=== PATIENT | female | born 1975 | race Caucasian/White ===

== ENCOUNTER 2018-05-19 23:08 | Inpatient (IN) | payer OTHER ==
[2018-05-19] MEDS ORDERED: ONDANSETRON 4 MG/2 ML VIAL ONE (23:51)
[2018-05-19] MEDS ORDERED: NA CHLORIDE 0.9% 1,000 ML ONE (23:52)
[2018-05-19 23:56] LABS: Absolute Lymphocytes (CBC) 1.5 K/uL (0.7-4.9); Absolute Monocytes 1.1 K/uL (0.1-1.3); Absolute Neutrophil 11.5 K/uL (1.8-8.0); Basophils % 0.7 % (0-1.3); Eosinophils % 1.2 % (0-4.4); Hematocrit 39.6 % (36.0-45.0); Lymphocytes % 10.4 % (15.3-44.8); MCH 28.6 pg (27.0-35.0); MCV 85.9 fL (80-100); MPV 8.3 fL (7.6-11.3); Monocytes % 7.9 % (3.3-12.3)
[2018-05-20 00:22] LABS: ALT/SGPT 13 U/L (12-78); AST/SGOT 9 U/L (15-37); Albumin 3.6 g/dL (3.4-5.0); Alkaline Phosphatase 65 U/L (45-117); Amylase Level 43 U/L (25-115); BUN Blood Urea Nitrogen 12 mg/dL (7-18); Bicarbonate 26 mmol/L (21-32); Bilirubin Direct < 0.1 mg/dL (0-0.2); Bilirubin Total 0.4 mg/dL (0.2-1.0); Glucose Level 97 mg/dL (74-106); Lipase 256 U/L (73-393); Potassium 3.6 mmol/L (3.5-5.1); Protein, Total 7.3 g/dL (6.4-8.2); Sodium Level 140 mmol/L (136-145)
[2018-05-20 00:48] LABS: Urine Blood TRACE (NEG); Urine Glucose NEGATIVE (NEG); Urine Protein NEGATIVE (NEG); Urine pH 7.5 (5.0-7.0)
[2018-05-20 00:48] LABS: Urine Amorphous Sediment 3+ /HPF (NONE SEEN); Urine Bacteria <20 /HPF (<20); Urine Culture Reflex Order NOT NEEDED; Urine RBC <5 /HPF (NONE SEEN)
--- NOTE | 2018-05-20 04:29 | EDPHYS ---
Physician Documentation [facility] Name: Judith Arango Age: 42 yrs Sex: Female : 1975 Arrival Date: 05/19/2018 Time: 23:10 Bed 18 Private MD: ED Physician Austyn Montalvo HPI: 05/19 23:40 This 42 yrs old Female presents to ER via Ambulatory with complaints of cp Abdominal Pain. 23:40 The patient presents with abdominal pain right lower quadrant. Onset: The cp symptoms/episode began/occurred yesterday. The symptoms do not radiate. Associated signs and symptoms: Pertinent positives: nausea, Pertinent negatives: chest pain, constipation, diarrhea, dysuria, fever, headache, vaginal discharge, vomiting. The symptoms are described as pressure. Severity of pain: in the emergency department the pain is unchanged despite home interventions. 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 - Social history:: Smoking status: Patient/guardian denies using tobacco. - Ebola Screening: : No symptoms or risks identified at this time. ROS: 23:45 Constitutional: Negative for body aches, chills, fever, poor PO intake. cp 23:45 Eyes: Negative for injury, pain, redness, and discharge. cp 23:45 ENT: Negative for sore throat, difficulty swallowing, difficulty handling secretions. 23:45 Cardiovascular: Negative for chest pain, palpitations. 23:45 Respiratory: Negative for cough, shortness of breath, wheezing. 23:45 Abdomen/GI: Positive for abdominal pain, nausea, anorexia, Negative for vomiting, diarrhea, constipation, black/tarry stool, rectal bleeding. 23:45 Back: Negative for pain at rest, pain with movement, radiated pain. 23:45 : Negative for urinary symptoms, vaginal bleeding, vaginal discharge. 23:45 Skin: Negative for cellulitis, rash. 23:45 Neuro: Negative for altered mental status, headache, weakness. 23:45 All other systems are negative. Exam: 23:52 Constitutional: The patient appears in no acute distress, alert, awake, non-toxic, well cp developed, well nourished. 23:52 Head/Face: Normocephalic, atraumatic. cp 23:52 Eyes: Periorbital structures: appear normal, Conjunctiva: normal, no exudate, no injection, Sclera: no appreciated abnormality, Lids and lashes: appear normal, bilaterally. 23:52 ENT: External ear(s): are unremarkable, Nose: is normal, Mouth: Lips: moist, Oral mucosa: moist, Posterior pharynx: is normal, airway is patent, no erythema, no exudate. 23:52 Neck: ROM/movement: is normal, is supple, without pain, no range of motions limitations, no nuchal rigidity. 23:52 Chest/axilla: Inspection: normal, Palpation: is normal, no crepitus, no tenderness. 23:52 Cardiovascular: Rate: normal, Rhythm: regular. 23:52 Respiratory: the patient does not display signs of respiratory distress, Respirations: normal, no use of accessory muscles, no retractions, no splinting, no tachypnea, labored breathing, is not present, Breath sounds: are clear throughout, no decreased breath sounds, no stridor, no wheezing. 23:52 Abdomen/GI: Inspection: abdomen appears normal, Bowel sounds: active, all quadrants, Palpation: soft, in all quadrants, moderate abdominal tenderness, in the right lower quadrant, rebound tenderness, is not appreciated, voluntary guarding, is not appreciated, involuntary guarding, is not appreciated. 23:52 Back: pain, is absent, ROM is normal. 23:52 Skin: cellulitis, is not appreciated, no rash present. 23:52 Neuro: Orientation: to person, place \T\ time. Mentation: lucid, able to follow commands, Cerebellar function: is grossly normal, Motor: moves all fours, strength is normal, Sensation: no obvious gross deficits. Vital Signs: 23:18 BP 124 / 82; Pulse 89; Resp 16; Temp 98.9; Pulse Ox 99% on R/A; Weight 81.65 kg; Height aa1 5 ft. 6 in. (167.64 cm); Pain 0/10; 05/20 00:33 BP 116 / 61; Pulse 69; Resp 16 S; Pulse Ox 100% on R/A; jd3 02:00 BP 110 / 78; Pulse 64; Resp 18; Temp 98(O); Pulse Ox 97% on R/A; ea 04:27 Temp 100.2(O); ea 04:40 BP 104 / 73; Pulse 75; Resp 18; Pulse Ox 97% on R/A; ea 05:00 BP 118 / 70; Pulse 68; Resp 17; Temp 99.8(O); Pulse Ox 99% on R/A; Pain 2/10; ea 06:00 BP 114 / 63; Pulse 73; Resp 18; Pulse Ox 97% on R/A; ea 05/19 23:18 Body Mass Index 29.05 (81.65 kg, 167.64 cm) aa1 MDM: 05/19 23:23 Patient medically screened. 05/19 23:34 Order name: Amylase, Serum; Complete Time: 01:53 [facility] 05/19 23:34 Order name: Basic Metabolic Panel; Complete Time: 01:53 [facility] 05/20 01:53 Interpretation: Normal except: GFR 60. 05/19 23:34 Order name: CBC with Diff; Complete Time: 00:16 [facility] 05/20 00:17 Interpretation: Normal except: WBC 14.4; MEJIA% 79.8; LYM% 10.4; NEUT A 11.5. 05/19 23:34 Order name: Creatinine for Radiology; Complete Time: 01:53 [facility] 05/19 23:34 Order name: Hepatic Function; Complete Time: 01:53 [facility] 05/19 23:34 Order name: Lipase; Complete Time: 01:53 [facility] 05/19 23:34 Order name: Urine Microscopic Only; Complete Time: 01:53 [facility] 05/20 00:16 Order name: CT Abd/Pelvis - W/Contrast 05/20 00:32 Order name: Urine Dipstick--Ancillary (enter results); Complete Time: 01:53 [facility] 05/20 01:53 Interpretation: Normal except: UBLD TRACE; UPH 7.5. 05/20 00:32 Order name: Urine --Ancillary (enter results) [facility] 05/20 04:27 Order name: Blood Culture* 05/20 04:27 Order name: Blood Culture EDDE 05/19 23:34 Order name: IV Saline Lock; Complete Time: 23:55 [facility] 05/19 23:34 Order name: Labs collected and sent; Complete Time: 23:55 [facility] 05/19 23:34 Order name: Urine Dipstick-Ancillary (obtain specimen); Complete Time: 00:32 [facility] 05/19 23:35 Order name: Urine Test (obtain specimen); Complete Time: 00:32 j Administered Medications: 23:55 Drug: Zofran 4 mg Route: IVP; Site: left antecubital; [facility] 05/20 00:32 Follow up: Response: No adverse reaction [facility] 05/19 23:56 Drug: NS 0.9% 1000 ml Route: IV; Rate: 1 bolus; Site: left antecubital; [facility] 05/20 01:23 Follow up: Response: No adverse reaction; IV Status: Completed infusion; IV Intake: jd3 1000ml 05:09 Drug: cefOXitin 1 grams Route: IVPB; Infused Over: 30 mins; Site: left antecubital; dashawn 06:28 Follow up: Response: No adverse reaction; IV Status: Completed infusion ea Disposition: 04:29 Co-signature as Attending Physician, Austyn Montalvo MD pt developed fever is moderately gs tender will admi. Disposition: 05/20/18 04:28 Hospitalization ordered by Skyla Ribeiro for Inpatient Admission. Preliminary diagnosis is Diverticulitis of large intestine without perforation or abscess without bleeding. - Bed requested for Telemetry/MedSurg (Inpatient). - Status is Inpatient Admission. ea - Condition is Stable. - Problem is new. - Symptoms have improved. UTI on Admission? No Signatures: Dispatcher [employer] EDDE Taylor Infante RN RN kl Kern, Alissa, RN RN aa1 Jarad Lanza PA PA cp Antunez, Elena, RN RN ea Starr, Gregory, MD MD gs Davies, Jonathon, RN RN jd3 Corrections: (The following items were deleted from the chart) 05:52 04:28 Hospitalization Ordered by Skyla Ribeiro MD for Inpatient Admission. Preliminary diagnosis is Diverticulitis of large intestine without perforation or abscess without bleeding. Bed requested for Telemetry/MedSurg (Inpatient). Status is Inpatient Admission. Condition is Stable. Problem is new. Symptoms have improved. UTI on Admission? No. gs 06:01 05:52 05/20/2018 04:28 Hospitalization Ordered by Skyla Ribeiro MD for Inpatient kl Admission. Preliminary diagnosis is Diverticulitis of large intestine without perforation or abscess without bleeding. Bed requested for Telemetry/MedSurg (Inpatient). Status is Inpatient Admission. Condition is Stable. Problem is new. Symptoms have improved. UTI on Admission? No. kl 06:28 06:01 05/20/2018 04:28 Hospitalization Ordered by Skyla Ribeiro MD for Inpatient ea Admission. Preliminary diagnosis is Diverticulitis of large intestine without perforation or abscess without bleeding. Bed requested for Telemetry/MedSurg (Inpatient). Status is Inpatient Admission. Condition is Stable. Problem is new. Symptoms have improved. UTI on Admission? No. kl
--- NOTE | 2018-05-20 04:29 | ER ---
Nurse's Notes [facility] Name: Judith Arango Age: 42 yrs Sex: Female : 1975 Arrival Date: 05/19/2018 Time: 23:10 Bed 18 Private MD: Diagnosis: Diverticulitis of large intestine without perforation or abscess without bleeding Presentation: 05/19 23:17 Presenting complaint: Patient states: RLQ pain and suprapubic pressure since yesterday. aa1 States, "I don't know if I have a urinary tract infection or if it's an ovarian cyst or what.". Transition of care: patient was not received from another setting of care. Onset of symptoms was May 18, 2018. Risk Assessment: Do you want to hurt yourself or someone else? Patient reports no desire to harm self or others. Initial Sepsis Screen: Does the patient meet any 2 criteria? No. Patient's initial sepsis screen is negative. Does the patient have a suspected source of infection? Yes: Acute abdominal pain. Care prior to arrival: None. 23:17 Method Of Arrival: Ambulatory aa1 23:17 Acuity: DEE 3 aa1 Triage Assessment: 23:18 General: Appears in no apparent distress. comfortable, Behavior is calm, cooperative, aa1 appropriate for age. 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 - Social history:: Smoking status: Patient/guardian denies using tobacco. - Ebola Screening: : No symptoms or risks identified at this time. Screenin:27 Abuse screen: Denies threats or abuse. Nutritional screening: No deficits noted. jd3 Tuberculosis screening: No symptoms or risk factors identified. Fall Risk Ambulatory Aid- None/Bed Rest/Nurse Assist (0 pts). Gait- Normal/Bed Rest/Wheelchair (0 pts) Mental Status- Oriented to own ability (0 pts). Total Oscar Fall Scale indicates No Risk (0-24 pts). Assessment: 23:24 General: Appears uncomfortable, Behavior is calm, cooperative, appropriate for age. jd3 Pain: Complains of pain in right lower quadrant and left lower quadrant Pain currently is 4 out of 10 on a pain scale. Quality of pain is described as aching, Pain began 2-3 days ago. Is continuous. Neuro: Level of Consciousness is awake, alert, obeys commands, Oriented to person, place, time, situation. Cardiovascular: Heart tones S1 S2 present Capillary refill < 3 seconds Patient's skin is warm and dry. Respiratory: Airway is patent Respiratory effort is even, unlabored, Respiratory pattern is regular, symmetrical, Breath sounds are clear bilaterally. GI: Abdomen is round Bowel sounds present X 4 quads. Abd is soft and non tender X 4 quads. Reports lower abdominal pain. : Reports discomfort with urination. EENT: No signs and/or symptoms were reported regarding the EENT system. Derm: Skin is intact, Skin is dry, Skin is normal, Skin temperature is warm. Musculoskeletal: Circulation, motion, and sensation intact. Range of motion: intact in all extremities. 05/20 00:32 Reassessment: Patient appears in no apparent distress at this time. Patient and/or jd3 family updated on plan of care and expected duration. Pain level reassessed. Patient is alert, oriented x 3, equal unlabored respirations, skin warm/dry/pink. reports nausea is decreased. 00:55 Reassessment: CT notified of finishing PO contrast. jd3 02:00 General: Appears in no apparent distress. Behavior is calm, cooperative, appropriate ea for age. Pain: Denies pain. Cardiovascular: Patient's skin is warm and dry. Respiratory: Airway is patent Respiratory effort is even, unlabored, Respiratory pattern is regular, symmetrical. GI: Abdomen is round Bowel sounds present X 4 quads. Abd is soft and non tender X 4 quads. Derm: Skin is pink, warm \\T\\ dry. Musculoskeletal: No signs and/or symptoms reported regarding the musculoskeletal system. 03:03 Reassessment: Patient and/or family updated on plan of care and expected duration. Pain ea level reassessed. Patient is alert, oriented x 3, equal unlabored respirations, skin warm/dry/pink. Pt taken to CT. 04:18 Reassessment: Patient and/or family updated on plan of care and expected duration. Pain ea level reassessed. Pt resting with eyes closed, respirations even and unlabored, chest expansions even and symmetrical. No s/s of pain or discomfort noted at this time. 05:35 Reassessment: Patient and/or family updated on plan of care and expected duration. Pain ea level reassessed. Patient is alert, oriented x 3, equal unlabored respirations, skin warm/dry/pink. v/o obtained from Dr. Bustillo for Tylenol 500 mg 1 tab PO for fever. Medication administered, pt tolerated well. Pt denies pain at this time. 06:23 Reassessment: Patient and/or family updated on plan of care and expected duration. Pain ea level reassessed. Patient is alert, oriented x 3, equal unlabored respirations, skin warm/dry/pink. Report given to receiving nurse on second floor. Vital Signs: 05/19 23:18 BP 124 / 82; Pulse 89; Resp 16; Temp 98.9; Pulse Ox 99% on R/A; Weight 81.65 kg; Height aa1 5 ft. 6 in. (167.64 cm); Pain 0/10; 05/20 00:33 BP 116 / 61; Pulse 69; Resp 16 S; Pulse Ox 100% on R/A; jd3 02:00 BP 110 / 78; Pulse 64; Resp 18; Temp 98(O); Pulse Ox 97% on R/A; ea 04:27 Temp 100.2(O); ea 04:40 BP 104 / 73; Pulse 75; Resp 18; Pulse Ox 97% on R/A; ea 05:00 BP 118 / 70; Pulse 68; Resp 17; Temp 99.8(O); Pulse Ox 99% on R/A; Pain 2/10; ea 06:00 BP 114 / 63; Pulse 73; Resp 18; Pulse Ox 97% on R/A; ea 05/19 23:18 Body Mass Index 29.05 (81.65 kg, 167.64 cm) aa1 ED Course: 05/19 23:10 Patient arrived in ED. am2 23:12 Tal Mccall, KORY is Primary Nurse. jd3 23:18 Triage completed. aa1 23:18 Arm band placed on right wrist. Patient placed in an exam room, on a stretcher. aa1 23:22 Jarad Lanza PA is PHCP. cp 23:22 Austyn Montalvo MD is Attending Physician. cp 23:27 Patient has correct armband on for positive identification. Placed in gown. Bed in low jd3 position. Call light in reach. Side rails up X 1. Adult w/ patient. 23:45 Inserted saline lock: 20 gauge in left antecubital area, using aseptic technique. Blood jd3 collected. 05/20 00:51 Oral contrast given. 03:09 CT Abd/Pelvis - W/Contrast In Process Unspecified. EDMS 03:09 CT completed. Patient tolerated procedure well. Patient moved to CT via stretcher. Patient moved back from CT. 04:28 Skyla Ribeiro MD is Hospitalizing Provider. 06:23 No provider procedures requiring assistance completed. Patient admitted, IV remains in ea place. Administered Medications: 05/19 23:55 Drug: Zofran 4 mg Route: IVP; Site: left antecubital; jd3 05/20 00:32 Follow up: Response: No adverse reaction jd3 05/19 23:56 Drug: NS 0.9% 1000 ml Route: IV; Rate: 1 bolus; Site: left antecubital; jd3 05/20 01:23 Follow up: Response: No adverse reaction; IV Status: Completed infusion; IV Intake: jd3 1000ml 05:09 Drug: cefOXitin 1 grams Route: IVPB; Infused Over: 30 mins; Site: left antecubital; ea 06:28 Follow up: Response: No adverse reaction; IV Status: Completed infusion ea Intake: 01:23 IV: 1000ml; Total: 1000ml. jd3 Outcome: 04:28 Decision to Hospitalize by Provider. 06:23 Admitted to Med/surg accompanied by nurse, via wheelchair, room 231, with chart, Report ea called to Receiving nurse. 06:23 Condition: improved 06:28 Patient left the ED. ea Signatures: Dispatcher [employer] EDMS Elisabeth Bazzi RN RN aa1 French Weiner Jarad Lanza PA PA cp Moreno, Amanda amRama Burkett RN RN ea Starr, Gregory, MD MD gs Davies, Jonathon, RN RN jd3 Corrections: (The following items were deleted from the chart) 06:26 05:00 BP 104 / 73; Pulse 73bpm; Resp 18bpm; Pulse Ox 97% RA; ea ea 06:27 05:00 BP 114 / 63; Pulse 73bpm; Resp 18bpm; Pulse Ox 97% RA; dashawn tamez 06:23 Admitted to Med/surg accompanied by nurse, via wheelchair, room 212, with chart, ea Report called to Receiving nurse. dashawn
[2018-05-20] MEDS ORDERED: CEFOXITIN SODIUM 2 GM/VIAL ONE (04:34)
[2018-05-20] MEDS ORDERED: NA CHLORIDE 0.9% 50 ML IV ONE (04:34)
[2018-05-20] MEDS ORDERED: ACETAMINOPHEN 500 MG TAB PO ONE (05:32)
--- NOTE | 2018-05-20 05:43 | P.HP ---
Certification for Inpatient Patient admitted to: Inpatient With expected LOS: >2 Midnights Practitioner: I am a practitioner with admitting privileges, knowledge of patient current condition, hospital course, and medical plan of care. Services: Services provided to patient in accordance with Admission requirements found in Title 42 Section 412.3 of the Code of Federal Regulations Patient History Date of Service: 05/20/18 Reason for admission: acute diverticulitis History of Present Illness: Ms Arango is a 42 years old woman, with quite benign past medical history, who start yesterday morning with on and off abdominal pain. It was mostly localized on RLQ, 8/10 of intensity, associated with nausea but not vomiting. She has never had a pain like that before. She denied vomiting, or diarrhea. The patient was also complaining of fever. At arrival temperature was normal, however, during her stay in ER she developed fever 100.2F. Lab work remarkable for leukocytosis 14.4K CT abd/pelvis consistent with acute sigmoid diverticulitis. It was also found a uterine fibroid of 3.5 cm. Allergies No Known Allergies Allergy (Unverified 05/20/18 04:58) - Past Medical/Surgical History Past Medical History: Reviewed- Non-Contributory Past Surgical History: Reviewed- Non-Contributory - Family History Family History: Reviewed- Non-Contributory - Social History Smoking Status: Never smoker CD- Drugs: No Place of Residence: Home Review of Systems 10-point ROS is otherwise unremarkable Physical Examination - Physical Exam General: Alert, In no apparent distress HEENT: Atraumatic, PERRLA, Mucous membr. moist/pink, EOMI, Sclerae nonicteric Neck: Supple, 2+ carotid pulse no bruit, No LAD, Without JVD or thyroid abnormality Respiratory: Clear to auscultation bilaterally, Normal air movement Cardiovascular: Regular rate/rhythm, Normal S1 S2 Gastrointestinal: Normal bowel sounds, Tenderness (tender to palption, mostly on RLQ.) Musculoskeletal: No tenderness Integumentary: No rashes Neurological: Normal gait, Normal speech, Normal strength at 5/5 x4 extr, Normal tone, Normal affect Lymphatics: No axilla or inguinal lymphadenopathy - Studies Laboratory Data (last 24 hrs) 05/19/18 23:45: Creatinine 1.00 05/19/18 23:45: WBC 14.4 H, Hgb 13.1, Hct 39.6, Plt Count 337 06/27/18 23:45: Sodium 140, Potassium 3.6, BUN 12, Creatinine 1.00, Glucose 97, Total Bilirubin 0.4, AST 9 L, ALT 13, Alkaline Phosphatase 65, Amylase 43, Lipase 256 Assessment and Plan - Problems (Diagnosis) (1) Acute diverticulitis Onset Date: 05/20/18 Current Visit: Yes Status: Acute - Plan Ms Arango will be admitted to the hospital due to acute diverticulitis. Will start empiric treatment with Cipro and Flagyl, IV fluids, symptomatic medication for fever and pain. Will try clear liquids when the patient improves her nausea. - Advance Directives Does patient have a Living Will: No Does patient have a Durable POA for Healthcare: No - Code Status/Comfort Care Code Status Assessed: Yes Code Status: Full Code
[2018-05-20] MEDS ORDERED: ONDANSETRON 4 MG/2 ML VIAL IV PRN (06:31)
[2018-05-20] MEDS ORDERED: KETOROLAC 30 MG/ML INJ IV PRN (06:31)
[2018-05-20] MEDS ORDERED: ACETAMINOPHEN 500 MG TAB PO PRN (06:31)
--- NOTE | 2018-05-20 07:23 | RAD REPORT ---
EXAM DESCRIPTION: CT - Abdomen Pelvis W Contrast - 05/20/2018 6:45 am CLINICAL HISTORY: Persistent right lower quadrant pain, abdominal and pelvic pain. A preliminary written report was provided at the time of the study, and the report was reviewed prio r to final dictation. COMPARISON: None. TECHNIQUE: Biphasic, helical CT imaging of the abdomen and pelvis was performed following 100 ml non -ionic IV contrast. Oral contrast was given. All CT scans are performed using dose optimization technique as appropriate and may include automated exposure control or mA/KV adjustment according to patient size. FINDINGS: No suspicious findings in the lung bases. The liver, spleen, and pancreas show no suspicious findings. Gallbladder and biliary tree are also wi thout suspicious finding. Symmetric renal function is seen with no hydronephrosis or suspicious renal mass. No urinary bladder abnormality. Uterus contains heterogeneous 3.5 centimeter mass in the fundus that is likely an incide ntal fibroid. No ovarian abnormality identifiable. No gastric dilatation or gastric wall thickening. No acute small bowel finding. Appendix is normal. N o acute colon finding seen from cecum through descending colon. Approximately 8 centimeter long segme nt of sigmoid colon shows wall thickening with edema, fluid and stranding in the adjacent fat. Minima l diverticulosis is present in this region. Acute diverticulitis or nonspecific colitis would be most likely. Colon malignant etiology is not excluded but much less likely. No mass, lymphadenopathy or o ther finding to elevate likelihood of malignancy over infectious/inflammatory process. No abscess, pe rforation or other surgically emergent complication. No free air or pneumatosis. Trace free fluid is seen. No hernia, mass or bulky lymphadenopathy. No adrenal abnormality. No suspicious bony findings. IMPRESSION: Approximately 8 centimeter long segment of sigmoid colon showing circumferential wall th ickening with adjacent fluid, stranding and edema. No abscess, free air or other emergent complicatio n. Acute diverticulitis is most likely. Malignant etiology is not excluded but much less likely. Colon c an be evaluated with colonoscopy after medical management of the acute illness. Additional nonacute findings detailed in the body of the report.
[2018-05-20] MEDS ORDERED: SODIUM CHLORIDE 0.9% 10ML INJ IV PRN (07:47)
[2018-05-20] MEDS ORDERED: MORPHINE 2 MG/ML SYR IV PRN (07:48)
[2018-05-20] MEDS ORDERED: TRAMADOL HCL 50 MG TAB PO PRN (07:48)
[2018-05-20] MEDS ORDERED: HYDROCODONE/APAP 7.5/325 MG TAB PO PRN (07:48)
[2018-05-20] MEDS: NA CHLORIDE 0.9% 1,000 ML IV SCH ×3 (08:43→21:53)
[2018-05-20] MEDS: CIPROFLOXACIN 400mg IV 400 MG/200 ML BAG IV SCH ×2 (08:44→21:53)
[2018-05-20] MEDS: PANTOPRAZOLE 40 MG INJ IVP SCH (08:44)
[2018-05-20] MEDS: METRONIDAZOLE 500mg IVPB 500 MG/100 ML BAG IV SCH ×2 (08:44→17:13)
--- NOTE | 2018-05-20 08:48 | P.PN ---
Subjective Date of Service: 05/20/18 Primary Care Provider: [facility] Chief Complaint: acute diverticulitis Subjective: Improving Physical Examination - Vital Signs Temperature: 97.6 F Blood Pressure: 102/58 Pulse: 68 Respirations: 18 Pulse Ox (%): 96 - Physical Exam General: Alert, In no apparent distress, Oriented x3, Cooperative HEENT: Atraumatic, Mucous membr. moist/pink Neck: Supple Respiratory: Clear to auscultation bilaterally, Normal air movement Cardiovascular: Normal pulses, Regular rate/rhythm Gastrointestinal: Normal bowel sounds, Soft and benign, Non-distended, No masses , No rebound, No guarding, Tenderness (Pain to the left lower quadrant) Musculoskeletal: No erythema, No tenderness, No warmth Integumentary: No tenderness/swelling, No erythema, No warmth, No cyanosis Neurological: Normal speech, Normal strength at 5/5 x4 extr, Normal tone, Normal affect Lymphatics: No axilla or inguinal lymphadenopathy - Studies Laboratory Data (last 24 hrs) 05/19/18 23:45: Creatinine 1.00 05/19/18 23:45: WBC 14.4 H, Hgb 13.1, Hct 39.6, Plt Count 337 05/19/18 23:45: Sodium 140, Potassium 3.6, BUN 12, Creatinine 1.00, Glucose 97, Total Bilirubin 0.4, AST 9 L, ALT 13, Alkaline Phosphatase 65, Amylase 43, Lipase 256 Medications List Reviewed: Yes Assessment & Plan - Problems (Diagnosis) (1) GERD (gastroesophageal reflux disease) Current Visit: Yes Status: Suspected Plan: Will start PPI. Qualifiers: Esophagitis presence: esophagitis presence not specified Qualified Code(s) : K21.9 - Gastro-esophageal reflux disease without esophagitis (2) Acute diverticulitis Onset Date: 05/20/18 Current Visit: Yes Status: Acute Plan: Patient with sigmoid diverticulitis. Will start with clear liquid diet. Patient on IV Flagyl and Cipro. Will continue monitor closely. Will advance diet as tolerated. Encourage ambulation. Anticipate discharge in the next 1-2 days. Patient will need colonoscopy in 4-6 weeks. Education on diverticulitis will be provided. Discharge Plan: Home Plan to discharge in: 24 Hours Time Spent Managing Pts Care (In Minutes): 55
[2018-05-21] MEDS: METRONIDAZOLE 500mg IVPB 500 MG/100 ML BAG IV SCH ×2 (00:33→09:41)
[2018-05-21 05:48] LABS: Absolute Lymphocytes (CBC) 1.7 K/uL (0.7-4.9); Absolute Monocytes 0.9 K/uL (0.1-1.3); Basophils % 0.9 % (0-1.3); Eosinophils % 2.4 % (0-4.4); Hematocrit 35.7 % (36.0-45.0); Lymphocytes % 15.9 % (15.3-44.8); MCH 28.9 pg (27.0-35.0); MCV 86.1 fL (80-100); MPV 8.5 fL (7.6-11.3); Monocytes % 8.5 % (3.3-12.3); RBC Red Blood Cell Count 4.14 M/uL (3.86-4.86)
[2018-05-21 06:00] LABS: Magnesium 2.1 mg/dL (1.8-2.4); Potassium 3.6 mmol/L (3.5-5.1)
[2018-05-21] MEDS ORDERED: POTASSIUM 25 MEQ EFFERV TAB PO ONE (06:18)
[2018-05-21] MEDS: PANTOPRAZOLE 40 MG INJ IVP SCH (09:41)
[2018-05-21] MEDS: CIPROFLOXACIN 400mg IV 400 MG/200 ML BAG IV SCH (09:41)
--- NOTE | 2018-05-21 10:21 | P.DS ---
Admission Date: 05/20/18 Discharge Date: 05/21/18 Primary Care Provider: [facility] Disposition: ROUTINE DISCHARGE Discharge Condition: GOOD Reason for Admission: acute diverticulitis Procedures: CT scan: COMPARISON: None. TECHNIQUE: Biphasic, helical CT imaging of the abdomen and pelvis was performed following 100 ml non-ionic IV contrast. Oral contrast was given. All CT scans are performed using dose optimization technique as appropriate and may include automated exposure control or mA/KV adjustment according to patient size. FINDINGS: No suspicious findings in the lung bases. The liver, spleen, and pancreas show no suspicious findings. Gallbladder and biliary tree are also without suspicious finding. Symmetric renal function is seen with no hydronephrosis or suspicious renal mass. No urinary bladder abnormality. Uterus contains heterogeneous 3.5 centimeter mass in the fundus that is likely an incidental fibroid. No ovarian abnormality identifiable. No gastric dilatation or gastric wall thickening. No acute small bowel finding. Appendix is normal. No acute colon finding seen from cecum through descending colon. Approximately 8 centimeter long segment of sigmoid colon shows wall thickening with edema, fluid and stranding in the adjacent fat. Minimal diverticulosis is present in this region. Acute diverticulitis or nonspecific colitis would be most likely. Colon malignant etiology is not excluded but much less likely. No mass, lymphadenopathy or other finding to elevate likelihood of malignancy over infectious/inflammatory process. No abscess, perforation or other surgically emergent complication. No free air or pneumatosis. Trace free fluid is seen. No hernia, mass or bulky lymphadenopathy. No adrenal abnormality. No suspicious bony findings. IMPRESSION: Approximately 8 centimeter long segment of sigmoid colon showing circumferential wall thickening with adjacent fluid, stranding and edema. No abscess, free air or other emergent complication. Acute diverticulitis is most likely. Malignant etiology is not excluded but much less likely. Colon can be evaluated with colonoscopy after medical management of the acute illness. - Problems (1) GERD (gastroesophageal reflux disease) Current Visit: Yes Status: Suspected Qualifiers: Esophagitis presence: esophagitis presence not specified Qualified Code(s) : K21.9 - Gastro-esophageal reflux disease without esophagitis (2) Acute diverticulitis Onset Date: 05/20/18 Current Visit: Yes Status: Acute (3) Fibroid Current Visit: Yes Status: Suspected Brief History of Present Illness: 42 year old female presented emergency room with abdominal pain, nausea and vomiting. Pain mainly to the left lower quadrant. Patient was evaluated in the ER. Patient found to have sigmoid diverticulitis. The patient was admitted for treatment. Hospital Course: During the course of her stay patient was treated for sigmoid diverticulitis. Patient responded well. At discharge she did not have any nausea, vomiting or abdominal pain. At discharge she will continue with Cipro 500 mg 1 pill twice daily and Flagyl 500 mg 1 pill 3 times a day for 10 days. Patient may continue with a soft GI diet and advance as tolerated. Recommendation to follow up with GI in 2-4 weeks to monitor her progress. Patient colonoscopy in 4-6 weeks to further address. Education on diverticulitis will be provided. Patient may take Tylenol and/or ibuprofen as needed for pain. CT scan showed possible fibroid. Patient with history of fibroids in the past. Patient is seen by gynecology. Recommendation is for the patient to follow up with gynecology to further assess. Patient may have underlying GERD. At discharge patient will continue with Protonix 40 mg 1 pill once daily. Recommendation is for the patient follow up with GI to further evaluate. Vital Signs/Physical Exam: Temp Pulse Resp BP Pulse Ox 97.5 F 65 18 126/59 L 98 05/21/18 08:00 05/21/18 08:00 05/21/18 08:00 05/21/18 08:00 05/21/18 08:00 General: Alert, In no apparent distress, Oriented x3, Cooperative HEENT: Atraumatic Neck: Supple Respiratory: Clear to auscultation bilaterally, Normal air movement Cardiovascular: Normal pulses, Regular rate/rhythm Gastrointestinal: Normal bowel sounds, Soft and benign, Non-distended, No ascites, No tenderness, No masses, No rebound, No guarding Musculoskeletal: No erythema, No tenderness, No warmth Integumentary: No tenderness/swelling, No erythema, No warmth, No cyanosis Neurological: Normal speech, Normal strength at 5/5 x4 extr, Normal tone, Normal affect Laboratory Data at Discharge: WBC 11.0 K/uL (4.3-10.9) H D 05/21/18 05:05 Hgb 12.0 g/dL (12.0-15.0) 05/21/18 05:05 Hct 35.7 % (36.0-45.0) L 05/21/18 05:05 Plt Count 300 K/uL (152-406) 05/21/18 05:05 Sodium 142 mmol/L (136-145) 05/21/18 05:05 Potassium 3.6 mmol/L (3.5-5.1) 05/21/18 05:05 BUN 5 mg/dL (7-18) L 05/21/18 05:05 Creatinine 0.80 mg/dL (0.55-1.3) 05/21/18 05:05 Glucose 96 mg/dL (74-106) 05/21/18 05:05 Magnesium 2.1 mg/dL (1.8-2.4) 05/21/18 05:05 Total Bilirubin 0.4 mg/dL (0.2-1.0) 05/19/18 23:45 AST 9 U/L (15-37) L 05/19/18 23:45 ALT 13 U/L (12-78) 05/19/18 23:45 Alkaline Phosphatase 65 U/L (45-117) 05/19/18 23:45 Amylase 43 U/L (25-115) 05/19/18 23:45 Lipase 256 U/L (73-393) 05/19/18 23:45 Home Medications: Ciprofloxacin HCl [Cipro 500 MG Tablet] 500 mg PO BID #20 tab 05/21/18 Pantoprazole [Protonix Tab] 40 mg PO DAILY #30 tab 05/21/18 metroNIDAZOLE [Flagyl] 500 mg PO Q8H #30 tablet 05/21/18 New Medications: Ciprofloxacin HCl [Cipro 500 MG Tablet] 500 mg PO BID #20 tab metroNIDAZOLE [Flagyl] 500 mg PO Q8H #30 tablet Pantoprazole [Protonix Tab] 40 mg PO DAILY #30 tab Patient Discharge Instructions: 1. Patient will need to follow up with her PCP in 1 week to follow up this hospitalization. 2. Patient presented with abdominal pain, nausea. Patient found to have sigmoid diverticulitis. Patient did well during the course of her stay. At discharge patient tolerated her diet. No significant pain or nausea was noted at discharge. At discharge she will continue with Cipro 500 mg 1 pill twice daily and Flagyl 500 mg 1 pill 3 times a day for 10 days. Patient may continue with a soft GI diet and advance as tolerated. Recommendation to follow up with GI in 2-4 weeks to monitor her progress and further address. Patient colonoscopy in 4-6 weeks to further address. Education on diverticulitis will be provided. Patient may take ibuprofen and/or Tylenol as needed for pain. 3. CT scan showed possible fibroid. Patient with history of fibroids in the past. Patient is seen by gynecology. Recommendation is for the patient to follow up with gynecology to further assess. 4. Patient may have underlying GERD. At discharge patient will continue with Protonix 40 mg 1 pill once daily. Recommendation is for the patient follow up with GI to further evaluate. Diet: GI soft, advanced as tolerated Activity: Ad chintan Time spent managing pt's care (in minutes): 55
== END 2018-05-21 12:10 | disposition home or self-care (01) | DRG 392 ==
LOC: ER 23:08 → ERHOLD 05-20 04:48 → 2ND 05-20 06:02
PROVIDERS: ADMIT Internal Medicine; ATTEND Family Medicine
DX: K57.32 Diverticulitis of large intestine without perforation or abscess without bleeding (principal); K21.9 Gastro-esophageal reflux disease without esophagitis; D25.9 Leiomyoma of uterus, unspecified
CPT/HCPCS: 36415; 74177; 80048; 80076; 81003; 81015; 81025; 82150; 83690; 83735; 84145; 85025; 87040; 96361; 96365; 96375; 99285; C9113; J0694; J0744; J2405; J7030; Q9967

== ENCOUNTER 2018-07-23 08:51 | Day surgery (SDC) | payer OTHER ==
[2018-07-23] MEDS ORDERED: Ringers Lactate 1,000 ML IV ONE (09:21)
[2018-07-23 09:37] LABS: Specific Gravity 1.025 (1.005-1.030)
[2018-07-23] MEDS ORDERED: LIDOCAINE 1% MPF 5 ML VIAL ONE (10:32)
[2018-07-23] MEDS ORDERED: PROPOFOL 200 MG/20 ML VIAL IV ONE ×2 (10:32→11:27)
--- NOTE | 2018-07-23 12:36 | ENDO RPT ---
[address], [address] COLONOSCOPY PROCEDURE REPORT EXAM DATE: 07/23/2018 PATIENT NAME: Judith Arango MR #: [id number] BIRTHDATE: 1975 ATTENDING: Isma Webb DR STATUS: outpatient DAY CARE ASSISTANT: Kelsey Coughlin RN and Lexa Simeon [facility] INDICATIONS: The patient is a 42 yr old Female here for a colonoscopy due to diverticulitis PROCEDURE PERFORMED: Colonoscopy with biopsy - cold polypectomy MEDICATIONS: Per Anesthesia. ESTIMATED BLOOD LOSS: None CONSENT: The patient understands the risks and benefits of the procedure and understands that these risks include, but are not limited to: sedation, allergic reaction, infection, perforation and/or bleeding. Alternative means of evaluation and treatment include, among others: physical exam, x-rays, and/or surgical intervention. The patient elects to proceed with this endoscopic procedure. DESCRIPTION OF PROCEDURE: During intra-op preparation period all mechanical medical equipment was checked for proper function. Hand hygiene and appropriate measures for infection prevention was taken. Procedure, possible complications, alternatives including, but not limited to possibility of bleeding, perforation, tear, infection, sepsis, need for surgery, need for blood transfusion, were explained to the patient. After the risks, benefits and alternatives of the procedure were thoroughly explained, Informed consent was verified, confirmed and timeout was successfully executed by the treatment team. The patient was placed in the left lateral position. A digital rectal exam was performed and revealed internal hemorrhoids. After appropriate level of anesthesia, the scope was passed. The [id number] ([id number]) endoscope was introduced through the anus and advanced to the cecum, which was identified by both the appendix and ileocecal valve. The quality of the prep was fair. The instrument was then slowly withdrawn as the colon was fully examined. Scope withdrawal time was 12 minutes. COLON FINDINGS: Moderate diverticulosis was noted in the sigmoid colon. No bleeding was noted from the diverticulosis. There was moderate diverticulosis noted in the sigmoid colon with associated tortuosity. Two small polypoid shaped and smooth pedunculated polyps were found in the descending colon. A polypectomy was performed with cold forceps. The resection was complete, the polyp tissue was completely retrieved and sent to histology. A polypectomy was performed with cold forceps. The resection was complete, the polyp tissue was completely retrieved and sent to histology. Retroflexed views revealed no abnormalities. The scope was then completely withdrawn from the patient and the procedure terminated. ADVERSE EVENTS: There were no complications. IMPRESSIONS: 1. Moderate diverticulosis was noted in the sigmoid colon 2. There was moderate diverticulosis noted in the sigmoid colon 3. Two small pedunculated polyps were found in the descending colon; polypectomy was performed with cold forceps; polypectomy was performed with cold forceps RECOMMENDATIONS: 1. avoid NSAIDS for 2 weeks 2. await biopsy results 3. follow-up: office 2 week(s) 4. yearly hemoccult starting in 4 years 5. hemorrhoidal hygiene 6. low fiber / diverticular diet RECALL: Return in 3 year(s) for Colonoscopy, pending biopsy results. Pending Biopsy Isma Webb DR eSigned: Isma Webb DR 07/23/2018 11:21 AM cc: CPT CODES: ICD9 CODES: PATIENT NAME: Judith Arango MR#: [id number]
== END 2018-07-23 11:57 | disposition home or self-care (01) ==
LOC: OR 08:51
PROVIDERS: ATTEND Surgery
PROC: 0DBM8ZX Excision of Descending Colon, Via Natural or Artificial Opening Endoscopic, Diagnostic (ICD-10-PCS; principal; 2018-07-23 10:45)
DX: Z09 Encounter for follow-up examination after completed treatment for conditions other than malignant neoplasm (principal); K63.5 Polyp of colon; K57.30 Diverticulosis of large intestine without perforation or abscess without bleeding; K64.8 Other hemorrhoids
CPT/HCPCS: 81025; 88305

== ENCOUNTER 2020-10-24 08:50 | Emergency (ER) | payer OTHER ==
--- OUTSIDE RECORDS SUMMARY | 2020-10-24 09:43 | XMS REPORT | Continuity of Care Document ---
:1975 Author Organization [facility] t Address [address] [place] [address] [address] [place] [address] Care Team Providers Name Role Phone Provider, Urgent Care Attending Clinician Unavailable Doctor Unassigned, Name Attending Clinician Unavailable Problems This patient has no known problems. Allergies, Adverse Reactions, Alerts This patient has no known allergies or adverse reactions. Medications This patient has no known medications. Procedures This patient has no known procedures. Encounters Start End Encounter Admission Attending Care Care Encounter Source Date/Time Date/Time Type Type Clinicians Facility Department ID 2020-10-06 2020-10-06 Urgent Provider, [facility] [id number] 15:13:11 15:35:55 Care [facility] [id number] Care [place] [id number] [place] [phone] [address] 2020-10-06 2020-10-06 Letter Doctor SHANKS [id number] 00:00:00 00:00:00 (Out) UnassNAYANA cui [id number] [place] [facility] [phone] 044 Results This patient has no known results.
--- OUTSIDE RECORDS SUMMARY | 2020-10-24 09:43 | XMS REPORT | Summary of Care ---
:1975 Author Organization [facility] Address [address] [place] [id number] Care Team Providers Name Role Phone Pcp, Patient Does Not Have A Primary Care Provider +[id number] 0-0000 Reason for Visit Reason Comments Sinus Problem Headache advil @ 1200 Diarrhea yesterday, resolved today Encounter Details Date Type Department Care Team Description 10/06/2020 Urgent Care [facility] Family Alina Landeros, SURVEILLANCE ANALYST [address] [place], [place] [id number] Viral illness (Primary Dx); [facility] Provider, [facility] Exposure to SARS-associated coronavirus [address] [place] [address] Allergies No Known Allergiesdocumented as of this encounter (statuses as of 10/06/2020) Medications Medication Sig Dispensed Refills Start Date End Date Status LO LOESTRIN FE 1 mg-10 Take 1 tablet by 0 09/20/2020 Active mcg (24)/10 mcg (2) per mouth daily. tablet methylPREDNISolone Take by mouth 21 Each 0 10/06/2020 Active (MEDROL, RIA,) 4 mg SEE-INSTRUCTIONS tabletsIndications: . 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 There is no vaccine yet. During a pandemic, it's especially important to keep up on recommended vaccines for other illnesses.This is more true if you're at higher risk for severe illness from COVID-19, the flu, or pneumonia. This includes older adults and those who have long-term (chronic) health conditions. Getting a yearlyflu vaccine is advised for everyone 6 months old and older, with rare exceptions. Health experts advise the flu vaccine to protect you and others. The flu vaccine helps protect those at high-risk for serious illness, and lowers the strain on hospitals during the COVID-19 pandemic. Canceling travel and other outings Stay informed about COVID-19 in your area. Follow local instructions about being in public. Be awareof events in your community that may be postponed or canceled, such as school and sporting events. You may be advised not to attend public gatherings. You will be advised to stay at least 6 feet from others as much as possible. This is called "social distancing." You may be advised to stay at home and isolate yourself as much as possible if COVID-19 is in your area. You may hear terms such as "self isolate, "quarantine," stay at home, and intermediate in place. The CDC advises that people should not travel to areas where there are COVID-19 outbreaks right now for any reason that is not urgent. For the most current CDC travel advisories, visit the CDC website at www.cdc.gov/coronavirus/2019- ncov/travelers.Dont go on cruises or do non-essential travel right now. When you are at home Wash your hands often. Use soap and clean, running water for at least 20 seconds. If you don't have access to soap and water, use an alcohol-based hand exam proctor often. Make sure it has at least 60% alcohol. Don't touch your eyes, nose, or mouth unless you have clean hands. Dont kiss someone who is sick. If you need to cough or sneeze, do it into a tissue. Then throw the tissue into the trash. If youdon't have tissues, cough or sneeze into the bend of your elbow. When possible, don't touch "high-touch" shared surfaces such as doorknobs and handles, cabinet handles, and light switches. Clean frequently-touched home surfaces often with disinfectant. This includes desk surfaces, printers, phones, kitchen counters, tables, fridge door handle, bathroom surfaces, and any soiled surface. Closely follow disinfectant label instructions. Go to the CDCs detailed cleaning website at www.c al.gov/coronavirus/2019-ncov/prepare/cleaning-disinfection.html. Check your home supplies. Consider keeping a 2-week supply of medicines, food, and other needed household items. Make a plan for childcare, work, and ways to stay in touch with others. Know who will help you ifyou get sick. Don't be around people who are sick. There is no evidence right now that animals spread SARS-CoV-2. But it's always a good idea to wash your hands after touching any animals. Don't touch animals that may be sick. Dont share eating or drinking utensils with sick people. If you leave home Stay at least 6 feet away from all people. This is called "social distancing." When possible, don't touch "high-touch" public surfaces such as doorknobs and handles, cabinet handles, and light switches. If you touch these surfaces, try to clean them first with a disinfecting wipe. Or touch them using a tissue or paper towel. Use an alcohol-based hand exam proctor often. Make sure it has at least 60% alcohol. Don't touch your eyes, nose, or mouth unless you have clean hands. If you need to cough or sneeze, do it into a tissue. Then throw the tissue into the trash. If youdon't have tissues, cough or sneeze into the bend of your elbow. Don't attend public gatherings if possible. If you do attend public gatherings, follow social distancing rules. Don't share food or personal items such as water bottles. The CDC advises wearing a cloth face mask in public. During a public health emergency, medical face masks may be reserved for healthcare workers. You may need to make a cloth face mask of your own. You can do this using a bandana, T- shirt, or other cloth. The CDC has instructions on how to make a mask. Wear the mask so that it covers both your nose and mouth. The CDC advises all people over age 2 to wear cloth face masks in public settings when around people outside of their household, especially when it's hard to socially distance. For example, wear a mask in populated places such as public transit, public protests and marches, and crowded stores, bars, and restaurants. Cloth masks may help prevent people who have COVID-19 form spreading the virus to others. Cloth masks are most likely to reduce COVID-19 spread when masks are widely used by people who are out in the public. Certain people should not wear a face mask. This includes: ? Children younger than 2 years old ? Anyone with a health, developmental, or mental health condition that can be made worse by wearing a mask ? Anyone who is unconscious or unable to remove the face covering without help. See the CDC's guidance on who should not wear a face mask. If you are at a work site If you feel sick in any way, go home and stay home. Tell your traffic supervisor if you are well but live with someone who has COVID-19. Stay at least 6 feet away from all people. Don't shake hands with anyone. Don't attend in-person meetings, or limit how many you attend. Meet over phone or video if possible. Don't use other people's desks, phones, equipment, or offices, if possible. Wash your hands often. Use soap and clean, running water for at least 20 seconds. If you don't have access to soap and water, use an alcohol-based hand exam proctor often. Make sure it has at least 60% alcohol. Don't touch your eyes, nose, or mouth unless you have clean hands. The CDC advises wearing a cloth face mask in public. During a public health emergency, medical face masks may be reserved for healthcare workers. You may need to make a cloth face mask of your own. You can do this using a bandana, T- shirt, or other cloth. The CDC has instructions on how to make a mask. Wear the mask so that it covers both your nose and mouth. Follow the CDC's advice listed earlier. When possible, don't touch "high-touch" public surfaces such as doorknobs and handles, cabinet handles, and light switches. If you touch these surfaces, clean them first with a disinfecting wipe. Ortouch them using a tissue or paper towel. Use office yuko one person at a time. Consider not having office coffee or tea, or group foods. Dont have meals in groups. Clean work surfaces often with disinfectant. This includes desk surfaces, photocopier, printer, phones, kitchen counters, fridge door handle, bathroom surfaces, and others. Dont touch other peoples personal work tools, such as phones, keyboards, pens, and other items. Dont touch other peoples eating or drinking utensils. If you need to cough or sneeze, do it into a tissue. Then throw the tissue into the trash. If youdon't have tissues, cough or sneeze into the bend of your elbow. If you have been exposed to a person with COVID-19 If you've been exposed within that last 14 days to someone who is suspected of having COVID-19 or has tested positive for it: Call your healthcare provider and follow all instructions. Your activities and where you go likely will be restricted for up to 2 weeks. Check your community's instructions about activity restrictions. You may be directed to stay home, or "self-isolate." Take your temperature every morning and evening for at least 14 days. This is to check for fever.Keep a record of the readings. Watch for symptoms of the virus like cough or trouble breathing. Call your provider if you have symptoms. Call your provider first before going to any clinic or hospital. See the CDC's symptom program checker. Stay home if you are sick for any reason. Your limits are different if you've had COVID-19 in the last 3 months but are fully recovered without symptoms and you have been exposed to someone with COVID-19. If you are symptom-free, you don't need to quarantine or be retested. The CDC doesn't recommend retesting unless you have symptoms of COVID-19 and your new symptoms can't be linked to another illness. Contact your healthcare provider if you have any questions. If you develop symptoms, stay home. If you had COVID-19 more than 3 months ago and have been exposed again, treat it like you've never had COVID-19 and stay home, limit your contact with others, call your provider, and monitor for symptoms. When to call your healthcare provider Call your healthcare provider if you think you have COVID-19 symptoms. These can include fever, cough, and trouble breathing. They may also include body aches, headache, chills or repeated shaking withchills, sore throat, loss of taste or smell, or diarrhea. Dont go to a healthcare facility beforespeaking to a healthcare provider. Last modified date: 07/16/2020 Alex last reviewed this educational content on 02/22/202019995890-5620 [employer]. All rights reserved. This information is not intended as a substitute for professional medical care. Always follow your healthcare professional's instructions. Patient Education Viral Syndrome (Adult) A viral illness may cause a number of symptoms such as fever. Other symptoms depend on the part of the body that the virus affects. If it settles in your nose, throat, and lungs, it may cause cough, sore throat, congestion, runny nose, headache, earache and other ear symptoms, or shortness of breath. If it settles in your stomach and intestinal tract, it may cause nausea, vomiting, cramping, and diarrhea. Sometimes it causes generalized symptoms like "aching all over," feeling tired, loss of energy,or loss of appetite. A viral illness usually lasts anywhere from several days to several weeks, but sometimes it lasts longer. In some cases, a more serious infection can look like a viral syndrome in the first few days ofthe illness. You may need another exam and additional tests to know the difference. Watch for the warning signs listed below for when to seek medical advice. Home care Follow these guidelines for taking care of yourself at home: If symptoms are severe, rest at home for the first 2 to 3 days. Stay away from cigarette smoke - both your smoke and the smoke from others. You may use ovjo-vhy-vpncaoevlbdxndekhwku or ibuprofen for fever, muscle aching, and headache, unless another medicine was prescribed for this. If you have chronic liver or kidney disease or ever had a stomach ulcer or gastrointestinal bleeding, talk with your healthcare provider before using these medicines. No one who is younger than 18 and ill with a fever should take aspirin. It may cause severe disease or . Your appetite may be poor, so a light diet is fine. Avoid dehydration by drinking 8 to 12, 8-ounce glasses of fluids each day. This may include water; orange juice; lemonade; apple, grape, and cranberry juice; clear fruit drinks; electrolyte replacement and sports drinks; and decaffeinated teas andcoffee. If you have been diagnosed with a kidney disease, ask your healthcare provider how much and what types of fluids you should drink to prevent dehydration. If you have kidney disease, drinking too much fluid can cause it build up in the your body and be dangerous to your health. Miaf-xjc-ciwzcul remedies won't shorten the length of the illness but may be helpful for symptomssuch as cough, sore throat, nasal and sinus congestion, or diarrhea. Don't use decongestants if you have high blood pressure. Follow-up care Follow up with your healthcare provider if you do not improve over the next week. Call 911 Call 911 if any of the following occur: Convulsion Feeling weak, dizzy, or like you are going to faint Chest pain, or more than mild shortness of breath When to seek medical advice Call your healthcare provider right away if any of these occur: Cough with lots of colored sputum (mucus) or blood in your sputum Chest pain, shortness of breath, wheezing, or trouble breathing Severe headache; face, neck, or ear pain Severe, constant pain in the lower right side of your belly (abdominal) Continued vomiting (cant keep liquids down) Frequent diarrhea (more than 5 times a day); blood (red or black color) or mucus in diarrhea Feeling weak, dizzy, or like you are going to faint Extreme thirst Fever of 100.4F (38C) or higher, or as directed by your healthcare provider Alxe zacarias reviewed this educational content on 02/21/201819998170-3461 [employer]. [address] [place] [address]. All rights reserved. This information is not intended as a substitute for professional medical care. Always follow your healthcare professional's instructions. 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 Patient states diarrhea has improved and she has severe sinus pressure and congestion.Denies any fevers at home. No direct COVID contacts or recent traveling. She has been taking OTC medications with mild improvement. Past Medical History / Immunizations No past medical history on file. Past Surgical History No past surgical history on file. Allergies No Known Allergies Review of Systems Review of Systems Constitutional: Negative for activity change, appetite change and fever. HENT: Positive for congestion, rhinorrhea and sinus pressure. Respiratory: Negative for cough and shortness of breath. Cardiovascular: Negative for chest pain and palpitations. Gastrointestinal: Positive for diarrhea. Negative for abdominal pain, nausea and vomiting. Musculoskeletal: Negative for back pain and gait problem. Skin: Negative for rash and wound. Neurological: Positive for headaches. Negative for weakness. Psychiatric/Behavioral: Negative for agitation and confusion. The patient is not nervous/anxious. All other systems reviewed and are negative. Physical Exam BP 130/83 | Pulse 88 | Temp 36.9 C (98.4 F) (Oral) | Resp 16 | Ht 5' 6" (1.676 m) | Wt 170 lb (77.1 kg) | SpO2 99% | BMI 27.44 kg/m Physical Exam Vitals signs and nursing note reviewed. Constitutional: General: She is not in acute distress. Appearance: She is well-developed. She is not ill-appearing, toxic-appearing or diaphoretic. HENT: Head: Normocephalic and atraumatic. Right Ear: Hearing, ear canal and external ear normal. Tympanic membrane is bulging. Left Ear: Hearing, ear canal and external ear normal. Tympanic membrane is bulging. Nose: Right Sinus: Maxillary sinus tenderness present. No frontal sinus tenderness. Left Sinus: Maxillary sinus tenderness present. No frontal sinus tenderness. Mouth/Throat: Pharynx: Uvula midline. No oropharyngeal exudate. Eyes: General: Right eye: No discharge. Left eye: No discharge. Conjunctiva/sclera: Conjunctivae normal. Pupils: Pupils are equal, round, and reactive to light. Neck: Musculoskeletal: Normal range of motion and neck supple. Cardiovascular: Rate and Rhythm: Normal rate and regular rhythm. Heart sounds: Normal heart sounds. Pulmonary: Effort: Pulmonary effort is normal. No respiratory distress. Breath sounds: Normal breath sounds. No wheezing or rales. Chest: Chest wall: No tenderness. Musculoskeletal: Normal range of motion. General: No tenderness or deformity. Skin: General: Skin is warm and dry. Coloration: Skin is not pale. Findings: No erythema or rash. Neurological: Mental Status: She is alert and oriented to person, place, and time. Psychiatric: Speech: Speech normal. Behavior: Behavior normal. Behavior is cooperative. Thought Content: Thought content normal. Judgment: Judgment normal. Labs No results found for this or any previous visit (from the past 24 hour(s)). No results found. Orders and Treatments Orders Placed This Encounter Procedures COVID-19 (MOLECULAR TESTING NUCLEIC ACID AMPLIFICATION) Outpatient Encounter Medications as of 10/06/2020 Medication Sig methylPREDNISolone (MEDROL, RIA,) 4 mg tablets Take by mouth SEE- INSTRUCTIONS. follow package directions LO LOESTRIN FE 1 mg-10 mcg (24)/10 mcg (2) per tablet Take 1 tablet by mouth daily. No results found for this visit on 10/06/20. Diagnosis Patient well appearing, NAD noted on exam Patient speaking in complete sentences on exam. Physical exam otherwise unremarkable Vital signs WNL Judith was seen today for sinus problem, headache and diarrhea. Diagnoses and all orders for this visit: Viral illness - methylPREDNISolone (MEDROL, RIA,) 4 mg tablets; Take by mouth SEE- INSTRUCTIONS. follow package directions Exposure to SARS-associated coronavirus - COVID-19 (MOLECULAR TESTING NUCLEIC ACID AMPLIFICATION); Future - COVID-19 (MOLECULAR TESTING NUCLEIC ACID AMPLIFICATION) Disposition & Follow Up - Discussed likely viral diagnosis and treatment plan with pt. - pt advised on frequent effective handwashing - pt advised to increase fluid intake - advised to have the pt take OTC to treat symptoms. - Pt advised to administer Tylenol as per label recommendation as needed for pain or fever - AVS and Written/handout materials appropriate to problem and teaching provided. - advised to go to the nearest Emergency Department sooner for any new, worsening, persistent, or concerning symptoms - Patient verbalized understanding of all instructions EDUCATION: Handouts given: "What to do if you are sick with COVID-19" CDC information guide reviewed with the patient and handout given to patient Education given to self quarantine until results are back. Will notify patient with results. Patient states understanding and all questions answered. Plan of care, goals and medications discussed with patient. Patient voices understanding. Barriers to care: none Ability to manage care: good This visit did not involve counseling and coordination that comprised more than 50% of the visit time. ТАТЬЯНА [place] 10/06/2020 3:34 PM Summer Campoverde RN - 10/06/2020 7:20 PM CST Judith Arango is a 44 year old female Chief Complaint Patient presents with Sinus Problem Headache advil @ 1200 Diarrhea yesterday, resolved today Vitals: 10/06/20 1518 BP: 130/83 Pulse: 88 Resp: 16 Temp: 36.9 C (98.4 F) TempSrc: Oral SpO2: 99% Weight: 170 lb (77.1 kg) Height: 5' 6" (1.676 m) [facility] [place] AT [place] [address] Patient AAOx4 and in no acute distress. All Vitals taken, allergies and all medications reviewed, fall risk assessed. Pain level 3. documented in this encounter Plan of Treatment Name Type Priority Associated Diagnoses Order S chedule COVID-19 (MOLECULAR LAB Routine Exposure to Expected : 10/06/2020, TESTING SARS-associated Expires: 021 NUCLEIC ACID coronavirus AMPLIFICATION) Health Maintenance Due Date Last Done Comments Depression Screening 1985 DTaP,Tdap,and Td Vaccines (1 - 1992 Tdap) PAP SMEAR 1994 Breast Cancer Screening 2013 (MAMMOGRAM) INFLUENZA VACCINE (#1) 2020 Colorectal Cancer Screening 2023 PNEUMOCOCCAL 0-64 YEARS COMBINED Aged Out No longer eligible based on SERIES patient's age to complete this topic documented as of this encounter Results Not on filedocumented in this encounter Visit Diagnoses Diagnosis Viral illness - Primary Unspecified viral infection, in conditio ns classified elsewhere and of unspecified site Exposure to SARS-associated coronavirus documented in this encounter Additional Health Concerns Infection Onset Date Last Indicated Resolved Time COVID-19 Rule Out 10/06/2020 10/06/2020 documented as of this encounter documented as of this encounter
--- OUTSIDE RECORDS SUMMARY | 2020-10-24 09:43 | XMS REPORT | Summary of Care ---
:1975 Author Organization [facility] [[email or web address]] - [facility] Address [address] [place] [address] Care Team Providers Name Role Phone Pcp, Patient Does Not Have A Primary Care Provider [id number] Encounter Details Date Type Department Care Team Description 10/06/2020 Letter (Out) [facility] [[email or web address]] [place] Message s Doctor Unassigned, No [address] [facility] [place] [address] [address] [facility] [phone] [place] [address] Allergies No Known Allergiesdocumented as of this encounter (statuses as of 10/06/2020) Medications Medication Sig Dispensed Refills Start Date End Date Status LO LOESTRIN FE 1 mg-10 Take 1 tablet by 0 09/20/2020 Active mcg (24)/10 mcg (2) mouth daily. 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 documented as of this encounter Last Filed Vital Signs Not on filedocumented in this encounter Plan of Treatment Date Type Specialty Care Team Description 10/06/2020 Urgent Care Family Medicine Lois Landeros, [address] [place] [address] [phone] Viral illness (Primary Dx); Provider, [facility] Exposure to SARS-associated coronavirus Health Maintenance Due Date Last Done Comments Depression Screening 1985 DTaP,Tdap,and Td Vaccines (1 - 1992 Tdap) PAP SMEAR 1994 Breast Cancer Screening 2013 (MAMMOGRAM) INFLUENZA VACCINE (#1) 2020 Colorectal Cancer Screening 2023 PNEUMOCOCCAL 0-64 YEARS COMBINED Aged Out No longer eligible based on SERIES patient's age to complete this topic documented as of this encounter Results Not on filedocumented in this encounter Additional Health Concerns Infection Onset Date Last Indicated Resolved Time COVID-19 Rule Out 10/06/2020 10/06/2020 documented as of this encounter Insurance Payer Benefit Plan / Group Subscriber ID Effective Dates Phone Address Type AETNA AETNA O [id number] 2018-Present [place] documented as of this encounter
[2020-10-24 10:12] LABS: Absolute Lymphocytes (CBC) 1.4 K/uL (0.7-4.9); Basophils % 0.6 % (0-1.3); Hematocrit 39.6 % (36.0-45.0); Lymphocytes % 8.9 % (15.3-44.8); MPV 8.4 fL (7.6-11.3); RBC Red Blood Cell Count 4.49 M/uL (3.86-4.86)
[2020-10-24 10:25] LABS: BUN Blood Urea Nitrogen 8 mg/dL (7-18); Bicarbonate 27 mmol/L (21-32); Glucose Level 94 mg/dL (74-106); Potassium 3.7 mmol/L (3.5-5.1); Sodium Level 141 mmol/L (136-145)
[2020-10-24 10:26] LABS: ALT/SGPT 16 U/L (12-78); AST/SGOT 9 U/L (15-37); Albumin 3.1 g/dL (3.4-5.0); Alkaline Phosphatase 53 U/L (45-117); Bilirubin Direct < 0.1 mg/dL (0-0.2); Bilirubin Total 0.5 mg/dL (0.2-1.0); Lipase 173 U/L (73-393); Protein, Total 7.3 g/dL (6.4-8.2)
[2020-10-24 10:29] LABS: Urine Blood TRACE (NEG); Urine Glucose NEGATIVE (NEG); Urine Protein NEGATIVE (NEG); Urine pH 7.5 (5.0-7.0)
--- NOTE | 2020-10-24 11:02 | RAD REPORT ---
EXAM DESCRIPTION: CTAbdomen Pelvis W Contrast - 10/24/2020 10:25 am CLINICAL HISTORY: Abdominal pain. lower abdominal pain, fever COMPARISON: Abdomen Pelvis W Contrast dated 05/20/2018 TECHNIQUE: Biphasic CT imaging of the abdomen and pelvis was performed with 100 ml non-ionic IV cont rast. All CT scans are performed using dose optimization technique as appropriate and may include automated exposure control or mA/KV adjustment according to patient size. FINDINGS: The lung bases are clear. The liver contains a small cyst inferior right lobe. No aggressive liver lesion or biliary dilatation . The spleen, pancreas, adrenal glands and left kidney are within normal limits. Punctate calculus colbert perior pole right kidney. No bowel obstruction, free air, free fluid or abscess. The appendix is normal. 6 centimeter length o f the sigmoid colon in the left lower quadrant demonstrates moderate inflammatory changes with surrou nding fat stranding. Several diverticular present in the region. No evidence of significant lymphaden opathy. 4 cm cyst is present in the inferior left pelvis. No suspicious bony findings. IMPRESSION: 6 cm area of inflammation in the left lower quadrant sigmoid colon likely represents acu te diverticulitis. No abscess is seen. 4 cm probable functional left ovarian cyst.
--- NOTE | 2020-10-24 11:53 | EDPHYS ---
Physician Documentation [facility] Name: Judith Arango Age: 44 yrs Sex: Female : 1975 Arrival Date: 10/24/2020 Time: 08:51 Bed 8 Private MD: ED Physician Hemal Celestin HPI: 10/24 09:37 This 44 yrs old Female presents to ER via Ambulatory with complaints of jmm Abdominal Pain, Fever. 09:37 The patient presents with abdominal pain in the left lower quadrant. Onset: The jmm symptoms/episode began/occurred gradually, 5 day(s) ago. The symptoms do not radiate. Associated signs and symptoms: Pertinent positives: fever, Pertinent negatives: diarrhea, vomiting. The symptoms are described as achy. Modifying factors: The symptoms are alleviated by nothing, the symptoms are aggravated by nothing. The patient has experienced a previous episode, character is different. RIPPLER: 09:26 LMP 10/13/2020 aa5 Historical: - Allergies: 09:10 No Known Allergies; iw - Home Meds: 09:10 control [Active]; iw - PMHx: 09:10 Diverticulitis; Ovarian cyst; iw - PSHx: 09:10 None; iw - Immunization history:: Adult Immunizations unknown. - Social history:: Smoking status: Patient denies any tobacco usage or history of. ROS: 09:37 Constitutional: Negative for fever, chills, and weight loss, Cardiovascular: Negative jmm for chest pain, palpitations, and edema, Respiratory: Negative for shortness of breath, cough, wheezing, and pleuritic chest pain. 09:37 Abdomen/GI: Positive for abdominal pain. 09:37 All other systems are negative. Exam: 09:37 Constitutional: This is a well developed, well nourished patient who is awake, alert, jmm and in no acute distress. Head/Face: atraumatic. Eyes: EOMI, no conjunctival erythema appreciated ENT: Moist Mucus Membranes Neck: Trachea midline, Supple Chest/axilla: Normal chest wall appearance and motion. Cardiovascular: Regular rate and rhythm. No edema appreciated Respiratory: Normal respirations, no respiratory distress appreciated 09:37 Skin: General appearance color normal MS/ Extremity: Moves all extremities, no obvious deformities appreciated, no edema noted to the lower extremities Neuro: Awake and alert, normal gait Psych: Behavior is normal, Mood is normal, Patient is cooperative and pleasant 09:37 Abdomen/GI: Inspection: abdomen appears normal, Bowel sounds: normal, Palpation: soft, mild abdominal tenderness, in the left lower quadrant. Vital Signs: 09:10 BP 129 / 92; Pulse 86; Resp 16 S; Temp 99.0(O); Pulse Ox 98% on R/A; Weight 80.74 kg aa5 (R); Height 5 ft. 6 in. (167.64 cm) (R); Pain 410; 09:10 Body Mass Index 28.73 (80.74 kg, 167.64 cm) aa5 MDM: 09:27 Patient medically screened. [facility] 11:26 Data reviewed: vital signs, nurses notes. Counseling: I had a detailed discussion with maurice the patient and/or guardian regarding: the historical points, exam findings, and any diagnostic results supporting the discharge/admit diagnosis, lab results, radiology results, the need for outpatient follow up, to return to the emergency department if symptoms worsen or persist or if there are any questions or concerns that arise at home. ED course: Patient is alert and non toxic in appearance in the ED. Patient can tolerate PO. Patient advised to follow up with Dr. Webb for reevaluation and otherwise given strict return precautions. Patient understood and agrees with the plan of care. . 10/24 09:36 Order name: Basic Metabolic Panel; Complete Time: 10:44 [facility] 10/24 09:36 Order name: CBC with Diff; Complete Time: 10:23 [facility] 10/24 09:36 Order name: Hepatic Function; Complete Time: 10:44 [facility] 10/24 09:36 Order name: Lipase; Complete Time: 10:44 [facility] 10/24 10:22 Order name: Urine Dipstick--Ancillary (enter results); Complete Time: 10:44 10/24 10:22 Order name: Urine --Ancillary (enter results); Complete Time: 10:44 10/24 09:36 Order name: IV Saline Lock; Complete Time: 10:01 [facility] 10/24 09:36 Order name: Labs collected and sent; Complete Time: 10:01 [facility] 10/24 09:36 Order name: CT Abd/Pelvis - IV Contrast Only; Complete Time: 11:16 [facility] 10/24 10:11 Order name: Urine Test (obtain specimen); Complete Time: 10: aa5 10/24 10:11 Order name: Urine Dipstick-Ancillary (obtain specimen); Complete Time: 10: aa5 Administered Medications: 11:58 Drug: LevaQUIN 750 mg Route: PO; em 12:00 Follow up: Response: No adverse reaction em 11:58 Drug: Flagyl 500 mg Route: PO; em 12:00 Follow up: Response: Medication administered at discharge. em Disposition: 13:39 Co-signature as Attending Physician, Hemal Celestin MD I agree with the assessment and kdr plan of care. Disposition: 10/24/20 11:29 Discharged to Home. Impression: Acute Diverticulitis. - Condition is Stable. - Discharge Instructions: Diverticulitis. - Prescriptions for Zofran ODT 4 mg Oral tablet,disintegrating - place 1 tablet by TRANSLINGUAL route every 4-6 hours; 20 tablet. Flagyl 500 mg Oral Tablet - take 1 tablet by ORAL route every 6 hours for 10 days; 40 tablet. Levaquin 750 mg Oral Tablet - take 1 tablet by ORAL route once daily for 10 days; 10 tablet. - Medication Reconciliation Form, Thank You Letter, Antibiotic Education, Prescription Opioid Use form. - Follow up: Isma Webb MD; When: 2 - 3 days; Reason: Recheck today's complaints, Continuance of care, Re-evaluation by your physician. Signatures: Dispatcher [employer] EDHemal Alberto MD MD kdr Mickail, Joel, PA PA [facility] Merrill Jacobs RN RN Sameera De RN RN Chinyere Valente RN RN aa5 Corrections: (The following items were deleted from the chart) 11:59 11:29 10/24/2020 11:29 Discharged to Home. Impression: Acute Diverticulitis. Condition em is Stable. Forms are Medication Reconciliation Form, Thank You Letter, Antibiotic Education, Prescription Opioid Use. Follow up: Isma Webb; When: 2 - 3 days; Reason: Recheck today's complaints, Continuance of care, Re-evaluation by your physician. shyla
--- NOTE | 2020-10-24 11:53 | ER ---
Nurse's Notes [facility] Name: Judith Arango Age: 44 yrs Sex: Female : 1975 Arrival Date: 10/24/2020 Time: 08:51 Bed 8 Private MD: Diagnosis: Acute Diverticulitis Presentation: 10/24 09:09 Chief complaint: Patient states: lower abd pain, worse to LLQ that began 4-5 days ago. iw Pt also reports low grade fever today of 100.3*F. Pt reports taking Tylenol at 0730. Pt reports nausea and decreased appetite, denies vomiting, denies diarrhea. 09:09 Coronavirus screen: Client denies travel out of the [place] in the last 14 days. fever. iw Ebola Screen: Patient negative for fever greater than or equal to 101.5 degrees Fahrenheit, and additional compatible Ebola Virus Disease symptoms. Initial Sepsis Screen: Does the patient meet any 2 criteria? No. Patient's initial sepsis screen is negative. Does the patient have a suspected source of infection? No. Patient's initial sepsis screen is negative. Risk Assessment: Do you want to hurt yourself or someone else? Patient reports no desire to harm self or others. Onset of symptoms was September 2020. 09:09 Acuity: DEE 3 iw 09:09 Method Of Arrival: Ambulatory HEEL PADDER: 09:26 LMP 10/13/2020 aa5 Historical: - Allergies: 09:10 No Known Allergies; iw - Home Meds: 09:10 control [Active]; iw - PMHx: 09:10 Diverticulitis; Ovarian cyst; iw - PSHx: 09:10 None; iw - Immunization history:: Adult Immunizations unknown. - Social history:: Smoking status: Patient denies any tobacco usage or history of. Screenin:10 Abuse screen: Denies threats or abuse. Nutritional screening: No deficits noted. aa5 Tuberculosis screening: No symptoms or risk factors identified. Fall Risk None identified. Assessment: 09:10 General: Appears comfortable, Behavior is calm, cooperative. Pain: Complains of pain in aa5 right lower quadrant and left lower quadrant Pain does not radiate. Pain currently is 4 out of 10 on a pain scale. Quality of pain is described as tender, Pain began 4-5 days ago Is continuous. Neuro: Level of Consciousness is awake, alert, obeys commands, Oriented to person, place, time, situation. Cardiovascular: Patient's skin is warm and dry. Respiratory: Airway is patent Respiratory effort is even, unlabored, Respiratory pattern is regular, symmetrical. GI: Abdomen is round non-distended, Bowel sounds present X 4 quads. Abdomen is tender to palpation in left lower quadrant Reports nausea, Patient currently denies diarrhea, vomiting. : No signs and/or symptoms were reported regarding the genitourinary system. EENT: No signs and/or symptoms were reported regarding the EENT system. Derm: Skin is pink, warm \T\ dry. Musculoskeletal: Range of motion: intact in all extremities. 10:00 Reassessment: Pt ambulatory to restroom. . aa5 10:00 Reassessment: Patient is alert, oriented x 3, equal unlabored respirations, skin aa5 warm/dry/pink. 10:40 Reassessment: Pt resting in bed with eyes closed, pt easy to arouse to verbal stimuli, aa5 pt notified of wait time for CT scan results. Pt states no complaints at this time. . Vital Signs: 09:10 BP 129 / 92; Pulse 86; Resp 16 S; Temp 99.0(O); Pulse Ox 98% on R/A; Weight 80.74 kg aa5 (R); Height 5 ft. 6 in. (167.64 cm) (R); Pain 4/10; 09:10 Body Mass Index 28.73 (80.74 kg, 167.64 cm) aa5 ED Course: 08:51 Patient arrived in ED. as 09:09 Arm band placed on Patient placed in an exam room, on a stretcher. iw 09:09 Patient has correct armband on for positive identification. Placed in gown. Bed in low aa5 position. Call light in reach. Side rails up X 1. Pulse ox on. NIBP on. 09:13 Janusz Simmons PA is PHCP. [facility] 09:13 Hemal Celestin MD is Attending Physician. [facility] 09:23 Triage completed. iw 09:47 Sameera De, RN is Primary Nurse. iw 09:57 Initial lab(s) drawn, by me, sent to lab. Inserted saline lock: 20 gauge in right aa5 antecubital area, using aseptic technique. Blood collected. 10:26 CT Abd/Pelvis - IV Contrast Only In Process Unspecified. EDMS 11:27 Isma Webb MD is Referral Physician. [facility] 11:58 No provider procedures requiring assistance completed. IV discontinued, intact, em bleeding controlled, No redness/swelling at site. Pressure dressing applied. Administered Medications: 11:58 Drug: LevaQUIN 750 mg Route: PO; em 12:00 Follow up: Response: No adverse reaction em 11:58 Drug: Flagyl 500 mg Route: PO; em 12:00 Follow up: Response: Medication administered at discharge. em Outcome: 11:29 Discharge ordered by MD. m 11:58 Discharged to home ambulatory. em 11:58 Condition: stable 11:58 Discharge instructions given to patient, Instructed on discharge instructions, follow up and referral plans. medication usage, Demonstrated understanding of instructions, follow-up care, medications, Prescriptions given X 3. 11:59 Patient left the ED. em Signatures: Dispatcher [employer] EDMS Janusz Simmons PA PA [facility] Merrill Jacobs, KORY RN Annemarie Castellon Irene, KORY RN Chinyere Valente, KORY RN aa5 Corrections: (The following items were deleted from the chart) 09:24 09:09 Coronavirus screen: Client denies travel out of the [place] in the last 14 days. At this time, the client does not indicate any symptoms associated with coronavirus-19. iw
[2020-10-24] MEDS ORDERED: metroNIDAZOLE 500 MG TABLET ONE (12:02)
[2020-10-24] MEDS ORDERED: levoFLOXacin 750 MG TAB ONE (12:02)
== END 2020-10-24 11:59 | disposition home or self-care (01) ==
LOC: ER 08:50
DX: K57.32 Diverticulitis of large intestine without perforation or abscess without bleeding (principal)
CPT/HCPCS: 85025; 80048; 36415; 81025; 82565; 80076; 81003; 83690; 74177; Q9967; 99284

== ENCOUNTER 2023-04-27 19:54 | Emergency (ER) | payer OTHER ==
--- OUTSIDE RECORDS SUMMARY | 2023-04-27 19:58 | XMS REPORT | Continuity of Care Document ---
:1975 Author Organization Formerly [facility] t Address [address] [place] [address] [address] [place] [address] Care Team Providers Name Role Phone Pcp, Patient Does Not Have A Primary Care Physician [id number] PATRICIO ZAMARRIPA Attending Clinician Unavailable Dallin SALMERON, Patricio Attending Clinician Sunitha Steen Attending Clinician Doctor Unassigned, [place] Attending Clinician Unavailable Only, Woody Db Test Attending Clinician Unavailable Delaney Rangel Attending Clinician DELANEY KARU Attending Clinician Unavailable Mary Toro Attending Clinician Unavailable Lab, [facility] Attending Clinician Unavailable Sol Valenzuela Attending Clinician SOL AVENDANO Attending Clinician Unavailable KATERINE LANDEROS Attending Clinician Unavailable Provider, [facility] Attending Clinician Unavailable Katerine Barney Attending Clinician Mary Toro Admitting Clinician Unavailable Payers Payer Name Policy Type Policy Number Effective Date Expiration Date Karl BRODY [place] [id number] 2018 [employer]OYEE[employer] 00:00:00 Problems Condition Condition Condition Status Onset Resolution Last Treating Co mments Source Name Details Category Date Date Treatment Clinician Date No known No known Disease Unive rs active active ity of problems problems [facility] Allergies, Adverse Reactions, Alerts Allergy Allergy Status Severity Reaction(s) Onset Inactive Treating Comm ents Source Name Type Date Date Clinician No Known DA Active [facility] 06-24 [place] [facility] 00:00: d 00 [facility] No Known DA Active U [facility] Allergie 06-24 [place] 00:00: d 00 [facility] Center NO KNOWN Drug Active Univers ALLERGIE Class ity of S [facility] Social History Social Habit Start Date Stop Date Quantity Comments Source Exposure to Not sure [facility] SARS-CoV-2 (event) Medica l Branch Tobacco use and 2020-10-06 2020-10-06 Never used [facility] exposure 00:00:00 00:00:00 Medical Branch Sex [birth year] [facility] 00:00:00 00:00:00 [facility] Smoking Status Start Date Stop Date Source Never smoker [facility] Medications Ordered Filled Start Stop Current Ordering Indication Dosage Frequency Signature Comments Components Source Medication Medication Date Date Medication? Clinician (SIG) Name Name azelastine Yes [id number] 1{spray Use 1 Univers 137 mcg 4-19 } [place] in ity of (0.1 %) 00:00: each [place] nasal spray 00 nostril 2 Med ical (two) Branch times daily. Use in each nostril as directed amoxicillin 202- No [id number] 1{tbl} Take 1 Univers -clavulanat 4-19 04-27 tablet by it y of e 00:00: 04:59 mouth 2 [place] (AUGMENTIN) 00 :00 (two) Medical 875-125 mg times Branch per tablet daily for 7 days. methylPREDN 2019-11 Yes [id number] Take by Univers ISolone 1-14 mouth ity of (MEDROL, 00:00: SEE-INSTRU Jag as RIA,) 4 mg 00 CTIONS. Medica l tablets follow Branch package directions methylPREDN 2019- Yes [id number] Take by Univers ISolone 1-14 mouth ity of (MEDROL, 00:00: SEE-INSTRU Jag as RIA,) 4 mg 00 CTIONS. Medica l tablets follow Branch package directions methylPREDN 2019- Yes [id number] Take by Univers ISolone 1-14 mouth ity of (MEDROL, 00:00: SEE-INSTRU Jag as RIA,) 4 mg 00 CTIONS. Medica l tablets follow Branch package directions methylPREDN 2019-11 Yes [id number] Take by [facility] ISolone 1-14 mouth ity of (MEDROL, 00:00: SEE-INSTRU Jag as RIA,) 4 mg 00 CTIONS. Medica l tablets follow Branch package directions methylPREDN 2019-11 Yes [id number] Take by [facility] ISolone 1-14 mouth ity of (MEDROL, 00:00: SEE-INSTRU Jag as RIA,) 4 mg 00 CTIONS. Medica l tablets follow Branch package directions LO LOESTRIN 2019-11 Yes 1{tbl} Take 1 Un [place] FE 1 mg-10 0-29 tablet by ity of mcg (24)/10 00:00: mouth [place] mcg (2) per 00 daily. Medica l tablet Branch LOESTRIN 2019-11 Yes 1{tbl} Take 1 Un [place] FE 1 mg-10 0-29 tablet by ity of mcg (24)/10 00:00: mouth [place] mcg (2) per 00 daily. Medica l tablet Branch LOESTRIN 2019-11 Yes 1{tbl} Take 1 Un [place] FE 1 mg-10 0-29 tablet by ity of mcg (24)/10 00:00: mouth [place] mcg (2) per 00 daily. Medica l tablet Branch LOESTRIN 2019-11 Yes 1{tbl} Take 1 Un [place] FE 1 mg-10 0-29 tablet by ity of mcg (24)/10 00:00: mouth [place] mcg (2) per 00 daily. Medica l tablet Branch LOESTRIN 2019-11 Yes 1{tbl} Take 1 Un [place] FE 1 mg-10 0-29 tablet by ity of mcg (24)/10 00:00: mouth [place] mcg (2) per 00 daily. Medica l tablet Branch LOESTRIN 2019-11 Yes 1{tbl} Take 1 Un [place] FE 1 mg-10 0-29 tablet by ity of mcg (24)/10 00:00: mouth [place] mcg (2) per 00 daily. Medica l tablet Branch Vital Signs Vital Name Observation Time Observation Value Comments Source Body temperature 2022-03-11 17:47:00 36.72 Pauly [facility] [place] [facility] Respiratory rate 2022-03-11 17:47:00 17 /min [facility] [place] [facility] Body height 2022-03-11 17:47:00 167.6 cm [facility] [place] [facility] Body weight 2022-03-11 17:47:00 79.833 kg [facility] [place] [facility] BMI 2022-03-11 17:47:00 28.41 kg/m2 [facility] [place] [facility] Oxygen saturation in 2022-03-11 17:47:00 98 /min University of Arterial blood by [facility] Pulse oximetry Branch Systolic blood 2022-03-11 17:47:00 129 mm[Hg] Univer sity of pressure [place] [facility] Diastolic blood 2022-03-11 17:47:00 84 mm[Hg] Unive rsity of pressure [place] [facility] Heart rate 2022-03-11 17:47:00 58 /min [facility] [place] [facility] Systolic blood 2020-10-06 21:18:00 130 mm[Hg] Univer sity of pressure [place] [facility] Diastolic blood 2020-10-06 21:18:00 83 mm[Hg] Unive rsity of pressure [place] [facility] Heart rate 2020-10-06 21:18:00 88 /min [facility] [place] [facility] Body temperature 2020-10-06 21:18:00 36.89 Pauly [facility] [place] [facility] Respiratory rate 2020-10-06 21:18:00 16 /min [facility] [place] [facility] Body height 2020-10-06 21:18:00 167.6 cm [facility] [place] [facility] Body weight 2020-10-06 21:18:00 77.111 kg [facility] [place] [facility] BMI 2020-10-06 21:18:00 27.44 kg/m2 [facility] [place] [facility] Oxygen saturation in 2020-10-06 21:18:00 99 /min University of Arterial blood by [facility] Pulse oximetry Branch Systolic blood 2020-10-06 21:18:00 130 mm[Hg] Univer sity of pressure [place] [facility] Diastolic blood 2020-10-06 21:18:00 83 mm[Hg] Unive rsity of pressure [place] [facility] Heart rate 2020-10-06 21:18:00 88 /min [facility] [place] [facility] Body temperature 2020-10-06 21:18:00 36.89 Pauly [facility] Respiratory rate 2020-10-06 21:18:00 16 /min [facility] Body height 2020-10-06 21:18:00 167.6 cm [facility] Body weight 2020-10-06 21:18:00 77.111 kg [facility] BMI 2020-10-06 21:18:00 27.44 kg/m2 [facility] Oxygen saturation in 2020-10-06 21:18:00 99 /min [facility] Arterial blood by [facility] Pulse oximetry [place] Procedures Procedure Date / Time Performed Performing Clinician Sourc e POCT MOLECULAR FLU 2022-03-11 17:55:00 Sunitha Gray [facility] CONSENT/REFUSAL FOR 2022-03-11 17:29:13 Doctor Unassigned, No Un [facility] DIAGNOSIS AND Name [facility] TREATMENT Encounters Start End Encounter Admission Attending Care Care Encounter Source Date/Time Date/Time Type Type Clinicians Facility Department ID 2022-03-11 2022-03-11 Outpatient R DALLIN [facility] [id number] Univers 12:40:00 13:06:09 [facility] 2022-03-11 2022-03-11 Urgent Patricio Zamarripa [facility] [id number] Univers 12:40:00 13:06:09 Care [facility] [id number] ity of [place] [id number] Jag as DEA?BLEA [phone] [address] MEDICAL OFFICE BUILDING 2022-03-11 2022-03-11 Orders Doctor RIMMA [id number] Univers 00:00:00 00:00:00 Only NAYANA Enriquez [id number] ity of [place] [facility] 4.2.7.2.686 Jag as [phone] [place] [address] Branch 2021-11-26 2021-11-26 Laboratory Only, Ang Db Test [facility] 1.2.8 40.114 [id number] Univers 09:15:00 09:30:00 Only Katia Kaury HEALTH 350.1.13.10 ity of [place] 4.2.7.2.686 Jag as DEA?BLEA [phone] Ia arvin [address] MEDICAL OFFICE BUILDING 2021-11-26 2021-11-26 Outpatient R NATASHA [facility] [id number] Univers 09:15:00 09:15:00 DELANEY [facility] 2021-06-27 2021-06-27 Inpatient CARL Toro, HCAPM DAYS [id number] [facility] 10:54:00 10:54:00 Mary 92 [facility] 2021-01-21 2021-01-21 Laboratory Lab, [facility] [id number] 17:14:22 17:34:22 Only Fam Pob I Health [id number] [place] 4.2.7.2.686 Professio [phone] [place] [address] [address] 2021-01-21 2021-01-21 Laboratory Lab, [facility] Fam Pob I [facility] 1.2. 840.114 [id number] Univers 17:14:22 17:34:22 Only Sol [facility] [id number] ity of [place] 4.2.7.2.686 Jag as Professio [phone] Ia arvin [address] Office [address] [facility] 2021-01-21 2021-01-21 Outpatient R GLENDA, [facility] [id number] Univers 17:20:00 17:20:00 SOL menard o f [facility] 2020-10-06 2020-10-06 Outpatient R DANIELLE [facility] [id number] Univers 19:20:00 19:20:[address] [facility] 2020-10-06 2020-10-06 Urgent Provider, [facility] [id number] 15:13:11 15:35:55 Care [facility] [id number] Care [place] 4.2.7.2.686 Professio [phone] [place] [address] [address] 2020-10-06 2020-10-06 Urgent Provider, [facility] 1.2.840.114 [id number] [facility] 15:13:11 15:35:55 Care Katerine Landeros [facility] [id number] ity of [place] 4.2.7.2.686 Jag as Profterrellio [phone] Ia dical nal [address] [place] Office [address] [facility] 2020-10-06 2020-10-06 Letter Doctor SHANKS 1.2.840.114 [id number] 00:00:00 00:00:00 (Out) Unassigned, NAYANA 350.1.13.10 [place] [facility] 4.2.7.2.686 [phone] [facility] 2020-10-06 2020-10-06 Letter Doctor RIMMA 1.2.840.114 [id number] Univers 00:00:00 00:00:00 (Out) Unassigned, NAYANA 350.1.13.10 ity of [place] [facility] 4.2.7.2.686 Jag as [phone] [address] Results Test Description Test Time Test Comments Results Result Comments Source POCT MOLECULAR FLU 2022-03-11 18:07:03 Test Item Value Reference Range Interpretation Comme nts POCT Molecular FluA (test code = 75032-1) Negative Negative POCT Molecular FluB (test code = 07533-1) Negative Negative Lab Interpretation (test code = 32142-4) [facility] Test Item Value Reference Range Interpretation Comments SURG (test code = SURG) RUN DATE: 07/01/21 APRIL Celis Kaiser [facility] LAB PAGE 1 RUN TIME: 1275 Specimen Inquiry RUN USER: INTERFACE PATIENT: CHATA CULVER LOC: [place] U #: [id number] AGE/SX: 45/F ROOM: RE06/27/21[facility] DR: Mary Toro : 71 BED: DIS: STATUS: [facility] [place]: SPEC #: [id number] RECD: 06/28/21 STATUS: [place] CALVILLO #: [id number] MAGNOLIA: 06/27/[address]: Mary Toro MD ENTERED: 06/28/21 SP TYPE: SURG OTHR DR: No Primary or Family PhysicianORDERED: SURG PATH LVL 2, SURG PATH LVL 02/22 COPIES TO: No Primary or Family Physician Mary Toro MD [address] [place] [address] HISTOLOGY: TISSUE ID BLK PCS MARCO LEV PROCEDURE DISPOSITION ____ ___ ___ ___ URETERAL ORIFIC A 1 2 URETERAL ORIFIC B 1 2 FALLOPIAN TUBE, C 1 1 PROCEDURES: SURG PATH LVL 2 (06/28/21) SURG PATH LVL 4 (06/28/21) TISSUES: A. URETERAL ORIFICE, NOS - LEFT PERIURETER URETOSACRAL ENDOMETRIOSIS B. URETERAL ORIFICE, NOS - RIGHT PERIURETER URETOSACRAL ENDOMETRIOSIS C. FALLOPIAN TUBE, NOS - BILATERAL FALLOPIAN TUBES CPT CODES CPT CODE(S): 91684 , 12320M1 , , , , , FINAL DIAGNOSIS A. Left ureterosacral endometriosis, excision: SOFT TISSUE WITH FOCI OF ENDOMETRIOSIS NO EVIDENCE OF SIGNIFICANT ATYPIA OR MALIGNANCY B. Right periureter ureterosacral endometriosis, excision: SOFT TISSUE WITH FOCI OF ENDOMETRIOSIS NO EVIDENCE OF SIGNIFICANT ATYPIA OR MALIGNANCY C. Fallopian tube, bilateral salpingectomy: COMPLETE CROSS SECTIONS OF FALLOPIAN TUBES WITH PATENT LUMEN CONTINUED ON NEXT PAGE RUN DATE: 07/01/21 [facility] PAGE 2 RUN TIME: 1435 Specimen Inquiry RUN USER: INTERFACE SPEC #: [id number] PATIENT: CHATA CULVER #[id number] (Continued) FINAL DIAGNOSIS (Continued) BENIGN PARATUBAL CYSTS GROSS DESCRIPTION A. Left ureterosacral endometriosis. Received in formalin is an irregular fragment of morris-diamond soft tissue, 3.5 x 1.7 x 0.3 cm. The specimen is serially sectioned and the cut surface is diamond-brown and solid. The entire specimen is submitted as A1 and A2. B. Right periureter ureterosacral endometriosis. Received in formalin are two irregular fragments of morris-diamond soft to rubbery tissue, 1.1 x 0.7 x 0.2 cm and 1.0 x 0.7 x 0.5 cm. Both fragments are serially sectioned and the cut surfaces are diamond-brown and solid. The entire specimen is submitted separately labeled B1 and B2. C. Bilateral fallopian tubes. Received in formalin are two segments of fallopian tubes with fimbriated ends, the longer fallopian tube measures 6.5 x 1.0 x 0.8 cm. The second fallopian tube measures 6.0 x 1.0 x 1.0 cm. The longer fallopian tube is serially sectioned, has a patent lumen and is grossly unremarkable, except for five thin-walled paratubal cysts, the largest measures 0.7 cm, filled with translucent nonviscous fluid. The shorter fallopian tube is serially sectioned, is slightly tortuous, has a patent lumen and is grossly unremarkable. Section Code: A1 Entire fimbriated end of longer fallopian tube and paratubal cyst A2 Cross section of longer fallopian tube and paratubal cyst A3 Entire fimbriated end of shorter fallopian tube A4 Cross section of shorter fallopian tube /ba/pdb Grossing performed at [facility] Pathology, [address] [place] [address], [address], [place] [address]. Power Hammer Operator: Christiano Corey M.D. MICROSCOPIC DESCRIPTION A. Left ureterosacral endometriosis. Sections show fibrofatty tissue with benign mesothelial lining identified. There are foci of benign endometrial glands and stroma consistent with endometriosis. No evidence of significant atypia or malignancy. B. Right periureter ureterosacral endometriosis. Sections show fibrofatty tissue with benign mesothelial lining identified. There are foci of benign endometrial glands and stroma consistent with endometriosis. No evidence of significant atypia or malignancy. C. Bilateral fallopian tubes. Sections show complete cross sections of fallopian tubes with patent lumen. There are also benign paratubal simple CONTINUED ON NEXT PAGE RUN DATE: 07/01/21 APRIL V[facility] [place] - LAB PAGE 3 RUN TIME: 1435 Specimen Inquiry RUN USER: INTERFACE SPEC #: [id number] PATIENT: CHATA CULVER #[id number] (Continued) MICROSCOPIC DESCRIPTION (Continued) cysts identified. No significant inflammation identified. No evidence of significant atypia or malignancy. /pdb Signed SIGNATURE ON FILE Renan Franklin 07/01/21 1435 END OF REPORT COVID 19 INHOUSE [id number] 16:56:00 Test Item Value Reference Range Interpretation Comments COVID 19 INHOUSE AG NEGATIVE Negative Per william facturer, (test code = negative result s should [id number]) be treated aspr esumptive and, if inconsi stent with clinical signs andsymptoms or necessary for patient man agement, should betested with an alternative mol ecular assay. Negative resultsdo not preclude SA RS-CoV-2 infection and s hould not be usedas the s ole basis for patient man agement decisions. Nega tive results should be considered in t he context of apatient's r ecent exposures, hist ory, presence of cli nicalsigns and symptoms co nsistent with COVID-19. BASIC METABOLIC [id number] 16:54:00 Test Item Value Reference Range Interpretation Comments SODIUM (test code = NA) 139 mmol/L 134-147 N POTASSIUM (test code = 3.7 mmol/L 3.4-5.0 N K) CHLORIDE (test code = 108 mmol/L 100-108 N CL) CARBON DIOXIDE (test 29 mmol/L 21-32 N code = CO2) ANION GAP (test code = 2.0 GAP calc 4.0-15.0 L GAP) GLUCOSE (test code = 86 MG/DL 70-110 N GLU) BLOOD UREA NITROGEN 8 MG/DL 7-18 N (test code = BUN) GLOMERULAR FILTRATION >=60 max estimate >60 RATE (test code = GFR) estGFR CREATININE (test code = 0.7 MG/DL 0.6-1.0 N CREAT) CALCIUM (test code = CA) 8.9 MG/DL 8.5-10.1 N HCG SERUM [id number] 16:54:00 Test Item Value Reference Range Interpretation Comments HCG SERUM QUAL (test SERUM NEGATIVE SCREEN NEGATIVE code = HCGQL) BASIC METABOLIC [id number] 16:52:00 Test Item Value Reference Range Interpretation Comments SODIUM (test code = NA) mmol/L 134-147 POTASSIUM (test code = K) mmol/L 3.4-5.0 CHLORIDE (test code = CL) mmol/L 100-108 CARBON DIOXIDE (test code = CO2) mmol/L 21-32 ANION GAP (test code = GAP) GAP calc 4.0-15.0 GLUCOSE (test code = GLU) MG/DL 70-110 BLOOD UREA NITROGEN (test code = MG/DL 7-18 BUN) GLOMERULAR FILTRATION RATE (test estGFR >60 code = GFR) CREATININE (test code = CREAT) MG/DL 0.6-1.0 CALCIUM (test code = CA) MG/DL 8.5-10.1 HCG SERUM [id number] 16:52:00 Test Item Value Reference Range Interpretation Comments HCG SERUM QUAL (test SERUM NEGATIVE SCREEN NEGATIVE code = HCGQL) CBC W/AUTO [id number] 16:45:00 Test Item Value Reference Range Interpretation Comments WHITE BLOOD CELL (test code = 8.5 K/mm3 3.5-11.0 N WBC) RED BLOOD CELL (test code = 4.82 M/mm3 4.70-6.10 N RBC) HEMOGLOBIN (test code = HGB) 14.1 G/DL 10.4-14.9 N HEMATOCRIT (test code = HCT) 44.1 % 31.5-44.1 N MEAN CELL VOLUME (test code = 91.5 Fl 84.5-98.6 N MCV) MEAN CELL HGB (test code = MCH) 29.3 pg 27.0-34.2 N MEAN CELL HGB CONCETRATION 32.0 G/DL 31.5-34.0 N (test code = MCHC) RED CELL DISTRIBUTION WIDTH 12.6 SD 11.5-14.5 N (test code = RDW) PLATELET COUNT (test code = 411 K/mm3 150-450 N PLT) MEAN PLATELET VOLUME (test code 9.50 fL 7.0-10.5 N = MPV) NEUTROPHIL % (test code = NT%) 60.2 % 40-76 N IMMATURE GRANULOCYTE % (test 0.2 % 0.0-5.0 N code = IG%) LYMPHOCYTE % (test code = LY%) 27.5 % 20.5-51.1 N MONOCYTE % (test code = MO%) 6.5 % 1.7-9.3 N EOSINOPHIL % (test code = EO%) 4.7 % 0.0-6.0 N BASOPHIL % (test code = BA%) 0.9 % 0.0-2.0 N NUCLEATED RBC % (test code = 0.0 /100WBC% 0.0-1.0 N NRBC%) NEUTROPHIL # (test code = NT#) 5.1 K/mm3 1.8-7.6 N IMMATURE GRANULOCYTE # (test 0.02 x10 3/uL 0.00-0.03 N code = IG#) LYMPHOCYTE # (test code = LY#) 2.3 K/mm3 0.6-3.2 N MONOCYTE # (test code = MO#) 0.6 K/mm3 0.3-1.1 N EOSINOPHIL # (test code = EO#) 0.4 K/mm3 0.0-0.4 N BASOPHIL # (test code = BA#) 0.1 K/mm3 0.0-0.1 N NUCLEATED RBC # (test code = 0.0 K/mm3 0.0-0.1 N NRBC#) MANUAL DIFF REQUIRED (test code NO DIFF/SCN CRITERIA = MDIFF) URINALYSIS [id number] 16:24:00 Test Item Value Reference Range Interpretation Comments UA GLUCOSE DIPSTICK (test NEGATIVE mg/dL NEG code = DGLUU) UA BILIRUBIN DIPSTICK (test NEGATIVE mg/dL NEG code = BILU) UA KETONE DIPSTICK (test NEGATIVE mg/dL NEG code = KETU) UA SPECIFIC GRAVITY (test 1.015 SG 1.005-1.030 code = SGU) UA BLOOD DIPSTICK (test NEGATIVE mg/DL NEG code = CHEYANNE) UA PH DIPSTICK (test code = 7.0 pH UNITS 5.0-7.0 JASON) UA PROTEIN DIPSTICK (test NEGATIVE mg/dL NEG code = PROU) UA UROBILINIOGEN DIPSTICK 0.2 mg/dL <2.0 (test code = URO) UA NITRITE DIPSTICK (test NEGATIVE SCREEN NEG code = KERRI) UA LEUKOCYTE ESTERASE NEGATIVE Leuk/mcL NEGATIVE DIPSTICK (test code = LEUU) Urine Specimen Type: Clean Catch Notes Date/Time Note Provider Source 2021-06-27 16:22:00-00:00 [id number] [address] PATIENT NAME: CHATA CULVER ADMIT DATE: 1 ACCOUNT NO: [id number] ROOM NO: AGE: 45 REPORT TYPE: OPERATIVE REPORT SEX: F ADMITTING PHYSICIAN: ATTENDING PHYSICIAN: Mary Toro MD OPERATION DATE: 06/27/2021 PREOPERATIVE DIAGNOSES: Pelvic pain and menorrha erasmo. POSTOPERATIVE DIAGNOSES: Pelvic pain, menorrhagi a, and endometriosis. PROCEDURES PERFORMED: 1. Hysteroscopy, endometrial ablation with Ruba ure. 2. Laparoscopy, bilateral salpingectomy. 3. Laparoscopy endometriosis excision, deep infi ltrating endometriosis was removed. 4. Left ureterolysis. SURGEON: Mary Toro MD ANESTHESIA: General endotracheal. STRETCHER HELPER: Torri Perez. ESTIMATED BLOOD LOSS: Minimal. SPECIMENS: Bilateral tubes. Uterosacral endometr iosis on the right and left periureteric and uterosacral left lateral wall e ndometriosis. COMPLICATIONS: No complications. DRAINS: None. CONDITION: Stable. FINDINGS: There was deep infiltrating endometrio sis between the distal uterosacral ligament and the ureteric tunnel on the right side and then endometriotic implants all a long the left lateral wall in the periureteric area, especially with scarring. Adhesions to the sigmo id colon were present as well that had to be taken down in order for me to rel ease the peritoneum on the medial aspect. Then, once the ureter was dissected from the medial leaf of the broad ligament and laterally, the entire periton eum was stripped. Ablation effect was excellent. INDICATIONS: The patient is a 45-year-old female with pelvic pain and heavy bleeding. Evaluated endometrial lining. Negative for atypia or malignancy. PATIENT NAME: CHATA CULVER [id number] Consented for endometrial ablation with bilatera l salpingectomy for sterilization as well as risk reduction of ovari an cancer. We discussed that for the pelvic pain if there is any endometriosi s noted, that it would be excised at this time. PROCEDURE IN DETAIL: After informed consent was verified in the preoperative area, she was taken back to the OR and placed in supine fashion on the operating table. General anesthesia was given. She was misha jae in dorsal lithotomy position using Daniel stirrups. Abdomen, vulva, v agina, and perineum were prepped and draped in sterile fashion. Morgan was placed to drain the bladder. Speculum placed to expose the cervix. Anterior l ip was grasped with Allis clamps. Diagnostic hysteroscope was used to kelsey erse the cervical canal under direct visualization. Uterine cavity was entered and measured under direct vision. The cavity length was 4.5 cm upon calcul ation. After the scope was removed, the cervix was dilated to 14-Romanian. Th en, the NovaSure device was deployed into the uterine cavity. The cavity wid th was only 2.5 cm despite adjustment and movement of the device, so procee ded to enter this into the generator. Power setting was up to ____ gaming. T he ablation cycle was started after cavity integrity test was passed without a ny problems. The entire ablation cycle was 2 minutes. The device was the n deployed in the usual fashion. Hysteroscopy was performed. There was e xcellent ablation effect in the entire global endometrium. Small amount of c oronal left sided endometrium appeared to be intact. It was very small amount. Diagnostic VCare was introduced into the uterus and fixed in place. This area was draped. A 1 cm infraumbilical incision made with a scalp el using open laparoscopy technique. Fascia was incised, tagged with 0 Stuart ryl sutures. Peritoneum entered bluntly. S retractors placed. Insufflati on done and site of entry checked, was unremarkable. Upper abdominal surfa ce was unremarkable for any endometriosis. She was placed in dorsal lithotomy position. A 5 suprapubic and left lower quadrant ports were placed under dire ct vision, A 5 right lower quadrant trocar was placed later once the endome triosis was identified. Bilateral tubes were taken d own with the help of the LigaSure and the specimens were retrieved and sent out. There was some swelling of the tubes in the distal aspect. On examination closely, there were endometriotic implants all along the left lateral wall all the way to the uterosacral ligament and there was endometriosis that appeared to be infiltra ting, so the course of the ureter was traced but the proximal half was concealed because of t he omental adhesions of the sigmoid to the lateral wall. Carefully starting at the pelv ic brim, the adhesions were taken down. Peritoneum was laterally f rom the bowel. There were possibly some implants of endometriosis and the peritoneum was cauterized as I was cutting. Once the ureter was exposed along t he medial leaf of the broad ligament, the broad ligament was opened up later al to the ureter. Then, the opening was carried all the way to the level of the area between the ureteric tunnel and the uterosacral ligament. Then, the p eritoneal implants were gradually dissected off the lateral wall by ____ technique creating windows and using the LigaSure in a limi je fashion as needed and using cutting mode of the LigaSure as well. PATIENT NAME: CHATA CULVER [id number] Then, once I came down on the medial leaf of the broad ligament, the internal iliac vessels were identified and dissected late rally. Then, the ureter was identified and dissected laterally. Periureteric adhesions were located and they were and carefully isolating the ureter, these were cauterized and cut. All the endometriosis was stripped off from the periureteric area carefully until all normal tissue was seen. Then the entire peritoneum was stripped off with the help of the LigaSure. There was deep infiltrating Daniel-Masters window like change due to the deep infiltrating implants, so this was also dissected and cauterized and cut until normal fat was seen and the entire peritoneum wa s stripped off. This was handed off for perm anent pathology. There was excellent peristalsis of the ureter. The ureter had t o be dissected completely and laterally towards the vessels. Had excellent peristalsis. No e vidence of any electrical, mechanical, or thermal injury to it. On the opposite side, nodula r endo was present between the left ureteric tunnel as well as the uterosacral ligament. So here at this point, lateral peritoneum was incised lateral and superior to the ureter. Then, dissection carried superiorly all the way to the uterosacra l ligament and then inferiorly carried to separate the ureter off the endometri osis, then went medially to the medial most aspect of the uterosacr al and then the implant was dissected away from its base, which seemed to have pretty tough scarring to, but this was taken down systematically since ureter was visualized and p rotected. The implants were all handed out for permanent p athology. Thorough irrigation and suction was performed. There was excellent h emostasis. No evidence of electric mechanical, or thermal injury to the ur eters. All the trocars were removed under direct vision and injected with Marcaine at the beginning and end of the case. Instrument, needle, and sponge coun ts were correct. EBL was minimal. She was recovered from anesthesia and t aken to PACU in stable condition. Morgan was removed and the VCare. She will see me back in 1 week. She will be discharged home today. Her findings were discussed with her , and we will discuss at the postoperativ e appointment. Dictated By: Mary Toro MD WT: OP:LMOJGAN/JACEK/LIZZ Conf#: [id number]/DID#: [id number] Authenticated by Mary Toro MD On 08/08 04:25:43 PM at 0425 PATIENT NAME: CHATA CULVER [id number] 2021-06-27 13:25:00-00:00 [facility] ([facility]) Brief Op Note REPORT#:[id number] REPORT STATUS: Signed DATE:06/27/21 TIME:1325 PATIENT: CHATA CULVER UNIT #: [id number] ROOM/BED: : 73 AGE: 45 SEX: F ATTEND: Sa baigail Toro MD ADM AUTHOR: Mary Toro MD * ALL edits or amendments must be made on the Hitch/computer document * Op/Inv Proc Note - Brief Pre-procedure diagnosis: menorrhagia and pelvic pain Post-procedure diagnosis: same as pre procedure dx (Deep infiltrating endometriosi) Procedures performed: hysteroscopy endometrial abltion with novasure, laparoscopy with bilateral salpingectomy, endometriosis excision, left uret erolysis Primary Surgeon: pascual Jewelry Inspector(s): none (Nevin Perez) Anesthesia: general anesthesia Findings: normal ovaries, tubes, deep infiltrating endo right uterosacral ligament, left lateral wall, amy-ureteric, Uterosacral endo Complications: none Estimated blood loss in ml's: none Specimens removed/altered: none (tubes,lf wall,r t usl) Drain(s): None Approach: laparoscopic Wound class: clean Disposition: plan to D/C home at 1552 RPT #: [id number] END OF REPORT
[2023-04-27] MEDS ORDERED: ONDANSETRON 4 MG/2 ML VIAL ONE (20:27)
[2023-04-27] MEDS ORDERED: MORPHINE 4 MG/ML SYR ONE (20:27)
[2023-04-27] MEDS ORDERED: NA CHLORIDE 0.9% 1,000 ML ONE (20:27)
[2023-04-27 20:48] LABS: Absolute Lymphocytes (CBC) 1.9 K/uL (0.7-4.9); Hematocrit 41.5 % (36.0-45.0); Lymphocytes % 11.4 % (15.3-44.8); MCV 88.7 fL (80-100); MPV 8.4 fL (7.6-11.3); RBC Red Blood Cell Count 4.68 M/uL (3.86-4.86)
[2023-04-27 21:12] LABS: Albumin 4.2 g/dL (3.4-5.0); Bilirubin Total 0.4 mg/dL (0.2-1.0); Potassium 3.4 mEq/L (3.5-5.1); Protein, Total 8.2 g/dL (6.4-8.2)
[2023-04-27 21:13] LABS: Urine Bacteria <20 /HPF (<20); Urine Bilirubin NEGATIVE (Negative); Urine Blood 1+ (Negative); Urine Clarity Extremely Turbid (Clear); Urine Color Light-Yellow (Yellow); Urine Glucose NEGATIVE (Negative); Urine Mucus Slight /HPF (None Seen); Urine Protein TRACE (Negative); Urine Urobilinogen Normal (Normal); Urine pH 6.5 (5.0-7.0)
--- NOTE | 2023-04-27 22:48 | RAD REPORT ---
EXAM DESCRIPTION: CTAbdomen Pelvis W Contrast - 04/27/2023 10:40 pm CLINICAL HISTORY: Abdominal pain. ABD PAIN COMPARISON: Abdomen Pelvis W Contrast dated 10/24/2020; Abdomen Pelvis W Contrast dated 05/20/2018 TECHNIQUE: Biphasic CT imaging of the abdomen and pelvis was performed with 100 ml non-ionic IV cont rast. All CT scans are performed using dose optimization technique as appropriate and may include automated exposure control or mA/KV adjustment according to patient size. FINDINGS: The lung bases are clear. The liver contains a small benign cyst in the right lobe measuring 9 mm. Spleen, pancreas, adrenal gl ands and kidneys are within normal limits. Small nonobstructing right renal calculus. No bowel obstruction, free air, free fluid or abscess. There is moderately severe inflammation involv ing the sigmoid colon in the posterior pelvis. This is most compatible with moderate acute diverticul itis. There is no drainable abscess. The appendix is normal. No evidence of significant lymphadenopa thy. No suspicious bony findings. IMPRESSION: Moderate acute diverticulitis of the sigmoid colon is present without abscess. Small nonobstructing right calculus.
--- NOTE | 2023-04-27 23:02 | EDPHYS ---
Physician Documentation [facility] Name: Judith Arango Age: 47 yrs Sex: Female : 1975 Arrival Date: 04/27/2023 Time: 19:54 Bed 9 Private MD: ED Physician Ean Marie HPI: 04/27 23:08 This 47 yrs old Female presents to ER via Ambulatory with complaints of Abdominal kb Problem. 23:08 The patient presents with abdominal pain in the lower abdomen. Onset: The kb symptoms/episode began/occurred last week, and became worse today. The symptoms do not radiate. Associated signs and symptoms: none. The symptoms are described as constant. Modifying factors: The symptoms are alleviated by nothing, the symptoms are aggravated by nothing. Severity of pain: At its worst the pain was moderate in the emergency department the pain is unchanged. The patient has experienced a previous episode. The patient has not recently seen a physician. 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 - Social history:: Smoking status: Patient denies any tobacco usage or history of. ROS: 23:09 Constitutional: Negative for fever, chills, and weight loss. kb 23:09 Abdomen/GI: Positive for abdominal pain, Negative for nausea, vomiting, and diarrhea. 23:09 All other systems are negative. Exam: 23:09 Constitutional: This is a well developed, well nourished patient who is awake, alert, kb and in no acute distress. Head/Face: Normocephalic, atraumatic. ENT: Moist Mucous membranes Cardiovascular: Regular rate and rhythm with a normal S1 and S2. No gallops, murmurs, or rubs. No pulse deficits. Respiratory: Respirations even and unlabored. No increased work of breathing. Talking in full sentences Skin: Warm, dry with normal turgor. Normal color. MS/ Extremity: Pulses equal, no cyanosis. Neurovascular intact. Full, normal range of motion. Neuro: Awake and alert, GCS 15, oriented to person, place, time, and situation. Moves all extremities. Normal gait. 23:09 Abdomen/GI: Inspection: abdomen appears normal, Bowel sounds: normal, Palpation: soft, in all quadrants, mild abdominal tenderness, in the right lower quadrant and left lower quadrant. Vital Signs: 20:09 BP 126 / 78; Pulse 83; Resp 17; Temp 98.2; Pulse Ox 100% ; Weight 78.47 kg; Height 5 vc1 ft. 6 in. ; Pain 7/10; 23:16 BP 118 / 74; Pulse 74; Resp 16; Pulse Ox 99% on R/A; mb9 20:09 Body Mass Index 27.92 (78.47 kg, 167.64 cm) vc1 20:09 Pain Scale: Adult vc1 MDM: 19:58 Patient medically screened. kb 23:09 Differential diagnosis: diverticulitis, gastritis, non-specific abd pain, urinary tract kb infection. Data reviewed: vital signs, nurses notes. Consideration of Admission/Observation Escalation of care including admission/observation considered. considered admission, but pt elected to trial oral antibiotics on outpatient basis first. Pt is nontoxic in appearance, stable vital signs, pain controlled. . Counseling: I had a detailed discussion with the patient and/or guardian regarding: the historical points, exam findings, and any diagnostic results supporting the discharge/admit diagnosis, lab results, radiology results, the need for outpatient follow up, a family practitioner, to return to the emergency department if symptoms worsen or persist or if there are any questions or concerns that arise at home. 06 20:14 Order name: CBC with Diff; Complete Time: 21:01 kb 04/27 20:14 Order name: CMP; Complete Time: 21:23 kb 04/27 20:14 Order name: Lipase; Complete Time: 21:23 kb 04/27 20:14 Order name: Urinalysis w/ reflexes; Complete Time: 21:23 kb 04/27 20:14 Order name: CT Abd/Pelvis - IV Contrast Only; Complete Time: 22:57 kb 04/27 20:14 Order name: IV Saline Lock; Complete Time: 20:37 kb 04/27 20:14 Order name: Labs collected and sent; Complete Time: 20:37 kb Administered Medications: 20:20 Drug: NS 0.9% IV 1000 ml Route: IV; Rate: 1 bolus; Site: right antecubital; mb9 21:57 Follow up: Response: No adverse reaction; IV Status: Completed infusion mb9 20:22 Drug: Ondansetron IVP 4 mg Route: IVP; Site: right antecubital; mb9 21:57 Follow up: Response: No adverse reaction mb9 20:26 Drug: morphine IVP or IV 4 mg Route: IVP; Infused Over: 4 mins; Site: right antecubital;mb9 21:57 Follow up: Response: No adverse reaction mb9 23:11 Drug: Ciprofloxacin PO 500 mg Route: PO; mb9 23:16 Follow up: Response: No adverse reaction mb9 23:11 Drug: metroNIDAZOLE PO 500 mg Route: PO; mb9 23:16 Follow up: Response: No adverse reaction mb9 Disposition Summary: 04/27/23 23:01 Discharge Ordered Location: Home kb Condition: Stable kb Diagnosis - Diverticulitis of intestine, part unspecified, without perforation or abscess kb without bleeding Followup: kb - With: Emergency Department - When: As needed - Reason: Worsening of condition Followup: kb - With: Private Physician - When: 2 - 3 days - Reason: Recheck today's complaints, Continuance of care, Re-evaluation by your physician Discharge Instructions: - Discharge Summary Sheet kb - Diverticulitis, Cfom-sq-[id number] kb Forms: - Medication Reconciliation Form kb - Thank You Letter kb - Antibiotic Education kb - Prescription Opioid Use kb - Work release form mb9 Prescriptions: - ondansetron 4 mg Oral Tablet,disintegrating - take 1 tablet by ORAL route every 6 hours As needed; 12 tablet; Refills: 0, kb Product Selection Permitted - Flagyl 500 mg Oral Tablet - take 1 tablet by ORAL route every 8 hours for 10 days; 30 tablet; Refills: 0, kb Product Selection Permitted - Cipro 500 mg Oral Tablet - take 1 tablet by ORAL route every 12 hours for 10 days; 20 tablet; Refills: 0, kb Product Selection Permitted - Diclofenac Sodium 75 mg Oral tablet,delayed release (DR/EC) - take 1 tablet by ORAL route 2 times per day As needed; 30 tablet; Refills: 0, kb Product Selection Permitted Addendum: 04/30/2023 16:00 Co-signature as Attending Physician, Ean Marie MD I reviewed the patient's care r t provided by the Advanced Practice Provider and agree with the diagnosis and treatment plan. Signatures: Dispatcher [facility] Kristine Sellers, ТАТЬЯНА-C STOCK PLAN ADMINISTRATOR-Emmie Aldana RN RN vc1 Irena Bray RN RN mb9 Ean Marie MD MD rt
--- NOTE | 2023-04-27 23:02 | ER ---
Nurse's Notes [facility] Name: Judith Arango Age: 47 yrs Sex: Female : 1975 Arrival Date: 04/27/2023 Time: 19:54 Bed 9 Private MD: Diagnosis: Diverticulitis of intestine, part unspecified, without perforation or abscess without bleeding Presentation: 04/27 20:09 Chief complaint: Patient states: " i think I have diverticulitis, I've had it before vc1 but never like this.". Coronavirus screen: Vaccine status: Patient reports receiving the 2nd dose of the covid vaccine. Moderna Client denies travel out of the [place] in the last 14 days. At this time, the client does not indicate any symptoms associated with coronavirus-19. Ebola Screen: Patient negative for fever greater than or equal to 101.5 degrees Fahrenheit, and additional compatible Ebola Virus Disease symptoms Patient denies exposure to infectious person. Patient denies travel to an Ebola-affected area in the 21 days before illness onset. No symptoms or risks identified at this time. Initial Sepsis Screen: Does the patient meet any 2 criteria? No. Patient's initial sepsis screen is negative. Does the patient have a suspected source of infection? No. Patient's initial sepsis screen is negative. Risk Assessment: Do you want to hurt yourself or someone else? Patient reports no desire to harm self or others. Onset of symptoms was April 25, 2023. 20:09 Method Of Arrival: Ambulatory vc1 20:09 Acuity: DEE 3 vc1 Triage Assessment: 20:12 General: Appears in no apparent distress. uncomfortable, Behavior is calm, cooperative, vc1 appropriate for age. Pain: Complains of pain in right lower quadrant and left lower quadrant Pain radiates to anterior aspect of left lateral abdomen Pain currently is 7 out of 10 on a pain scale. Quality of pain is described as sharp. EENT: No deficits noted. No signs and/or symptoms were reported regarding the EENT system. Neuro: Level of Consciousness is awake, alert, obeys commands, Oriented to person, place, time, situation, Appropriate for age. Cardiovascular: No deficits noted. Respiratory: Airway is patent Respiratory effort is even, unlabored, Respiratory pattern is regular, symmetrical. GI: Abdomen is flat, non-distended, Reports lower abdominal pain, nausea. : No deficits noted. No signs and/or symptoms were reported regarding the genitourinary system. Derm: No deficits noted. No signs and/or symptoms reported regarding the dermatologic system. Musculoskeletal: No deficits noted. No signs and/or symptoms reported regarding the musculoskeletal system. 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 - Social history:: Smoking status: Patient denies any tobacco usage or history of. Screenin:58 [facility] ED Fall Risk Assessment (Adult) History of falling in the last 3 months, mb9 including since admission No falls in past 3 months (0 pts) Confusion or Disorientation No (0 pts) Intoxicated or Sedated No (0 pts) Impaired Gait No (0 pts) Mobility Assist Device Used No (0 pt) Altered Elimination No (0 pt) Score/Fall Risk Level 0 - 2 = Low Risk Oriented to surroundings, Maintained a safe environment, Educated pt \\T\\ family on fall prevention, incl call for assistance when getting out of bed. Abuse screen: Denies threats or abuse. Nutritional screening: No deficits noted. Tuberculosis screening: No symptoms or risk factors identified. Assessment: 20:58 Reassessment: see triage assessment. mb9 21:57 Reassessment: Patient and/or family updated on plan of care and expected duration. Pain mb9 level reassessed. Patient is alert, oriented x 3, equal unlabored respirations, skin warm/dry/pink. Patient states feeling better. Patient states symptoms have improved. 21:58 GI: Bowel sounds present X 4 quads. Abd is soft and non tender X 4 quads. mb9 22:29 Reassessment: pt taken to CT via wheelchair. mb9 Vital Signs: 20:09 BP 126 / 78; Pulse 83; Resp 17; Temp 98.2; Pulse Ox 100% ; Weight 78.47 kg; Height 5 vc1 ft. 6 in. ; Pain 7/10; 23:16 BP 118 / 74; Pulse 74; Resp 16; Pulse Ox 99% on R/A; mb9 20:09 Body Mass Index 27.92 (78.47 kg, 167.64 cm) vc1 20:09 Pain Scale: Adult vc1 ED Course: 19:57 Patient arrived in ED. es 19:58 Kristine Light FNP-C [facility]. kb 19:58 Ean Marie MD is Attending Physician. kb 20:11 Triage completed. vc1 20:13 Arm band placed on right wrist. vc1 20:17 Irena Bray RN is Primary Nurse. mb9 20:25 Radiology exam delayed due to lab results not completed at this time. (BUN/Creatinine) jg10 test not completed at this time. IV insertion attempt and/or patient not having appropriate IV at this time. 20:37 CBC with Diff Sent. mb9 20:37 CMP Sent. mb9 20:37 Lipase Sent. mb9 20:37 Urinalysis w/ reflexes Sent. mb9 20:57 Bed in low position. Call light in reach. Side rails up X 1. Client placed on mb9 continuous cardiac and pulse oximetry monitoring. NIBP monitoring applied. 20:58 No provider procedures requiring assistance completed. Inserted saline lock: 20 gauge mb9 in right antecubital area, using aseptic technique. 22:46 CT Abd/Pelvis - IV Contrast Only In Process Unspecified. EDMS 23:05 IV discontinued, intact, bleeding controlled, No redness/swelling at site. Pressure mb9 dressing applied. Administered Medications: 20:20 Drug: NS 0.9% IV 1000 ml Route: IV; Rate: 1 bolus; Site: right antecubital; mb9 21:57 Follow up: Response: No adverse reaction; IV Status: Completed infusion mb9 20:22 Drug: Ondansetron IVP 4 mg Route: IVP; Site: right antecubital; mb9 21:57 Follow up: Response: No adverse reaction mb9 20:26 Drug: morphine IVP or IV 4 mg Route: IVP; Infused Over: 4 mins; Site: right antecubital;mb9 21:57 Follow up: Response: No adverse reaction mb9 23:11 Drug: Ciprofloxacin PO 500 mg Route: PO; mb9 23:16 Follow up: Response: No adverse reaction mb9 23:11 Drug: metroNIDAZOLE PO 500 mg Route: PO; mb9 23:16 Follow up: Response: No adverse reaction mb9 Medication: 20:58 VIS not applicable for this client. mb9 Outcome: 23:01 Discharge ordered by . rosa 23:05 Discharged to home ambulatory. mb9 23:05 Condition: stable 23:05 Discharge instructions given to patient, Instructed on discharge instructions, follow up and referral plans. Demonstrated understanding of instructions, follow-up care, medications, Prescriptions given X 4. 23:17 Patient left the ED. mb9 Signatures: Dispatcher [employer] EDKristine Collins, ТАТЬЯНА-C ТАТЬЯНА-Shruthi Martin Vanessa RN RN vc1 Brenda BenitoIrena Hudson RN RN mb9
[2023-04-27] MEDS ORDERED: metroNIDAZOLE 500 MG TABLET ONE (23:14)
[2023-04-27] MEDS ORDERED: CIPROFLOXACIN HCL 500 MG TAB ONE (23:15)
[2023-04-28 01:24] VITALS: TEMP 98.2
[2023-04-28 01:25] VITALS: BP 118/74; O2SAT 99
== END 2023-04-27 23:17 | disposition home or self-care (01) ==
LOC: ER 19:54
DX: K57.32 Diverticulitis of large intestine without perforation or abscess without bleeding (principal)
CPT/HCPCS: 96361; 85025; 81001; 36415; 83690; 80053; 74177; 96375; 96374; 99284; Q9967; J2405; J7030

== ENCOUNTER 2025-02-24 09:21 | Emergency (ER) | payer OTHER ==
[2025-02-24] MEDS ORDERED: ONDANSETRON 4 MG/2 ML VIAL ONE (10:04)
[2025-02-24] MEDS ORDERED: HYDROMORPHONE HCL 1 MG/ML INJ ONE (10:04)
[2025-02-24 10:22] LABS: Specific Gravity 1.019 (1.005-1.030)
[2025-02-24 10:23] LABS: Specific Gravity 1.019 (1.005-1.030); Sqamous Epithelial <5 /HPF (None Seen); Urine Bacteria None Seen /HPF (<20); Urine Bilirubin NEGATIVE (Negative); Urine Blood 3+ (OVER) (Negative); Urine Clarity Turbid (Clear); Urine Color Light-Yellow (Yellow); Urine Culture Reflex Order NOT NEEDED; Urine Glucose NEGATIVE (Negative); Urine Ketones 1+ (Negative); Urine Microscopic Reflex YN ORDER UMIC; Urine Mucus Slight /HPF (None Seen); Urine Nitrite NEGATIVE (Negative); Urine Protein TRACE (Negative); Urine RBC >50 /HPF (None Seen); Urine Urobilinogen Normal (Normal); Urine WBC <5 /HPF (<5); Urine pH 8.5 (5.0-7.0)
[2025-02-24 10:26] LABS: Absolute Basophils 0.1 K/uL (0-0.5); Absolute Eosinophils 0.1 K/uL (0-0.5); Absolute Lymphocytes (CBC) 1.2 K/uL (0.7-4.9); Absolute Monocytes 0.5 K/uL (0.1-1.3); Absolute Neutrophil 9.4 K/uL (1.8-8.0); Basophils % 0.6 % (0-1.3); Eosinophils % 0.7 % (0-4.4); Hematocrit 42.1 % (36.0-45.0); Hemoglobin 14.4 g/dL (12.0-15.0); Lymphocytes % 10.9 % (15.3-44.8); MCH 30.2 pg (27.0-35.0); MCHC 34.2 g/dL (32.0-36.0); MCV 88.3 fL (80-100); MPV 8.2 fL (7.6-11.3); Monocytes % 4.8 % (3.3-12.3); Platelets 341 thou/uL (152-406); RBC Red Blood Cell Count 4.77 M/uL (3.86-4.86); Red Cell Distribution Width 13.1 % (12.1-15.2)
[2025-02-24 10:28] LABS: Albumin 3.7 g/dL (3.4-5.0); Anion Gap 9.6 mEq/L (5.0-15.0); Bilirubin Total 0.4 mg/dL (0.2-1.0); Globulin 3.6 g/dL (2.3-3.5); Potassium 3.6 mEq/L (3.5-5.1); Protein, Total 7.3 g/dL (6.4-8.2)
--- NOTE | 2025-02-24 10:35 | RAD REPORT ---
EXAMINATION: CT ABDOMEN AND PELVIS WITHOUT CONTRAST CLINICAL INDICATION: ABD PAIN TECHNIQUE: CT abdomen and pelvis was performed, without IV contrast, as per department protocol. Axia l, sagittal and coronal reconstructions were obtained. One or more of the following dose reduction techniques were used: Automated exposure control, adjustment of the mA and kV according to the patien t size, and iterative reconstruction. Unless otherwise specified, incidental findings do not require dedicated imaging follow-up. COMPARISON: 04/27/2023 FINDINGS: The lack of intravenous contrast limits the sensitivity of this exam for evaluation of solid visceral organs, vascular structures, and retroperitoneum. LOWER CHEST: The visualized lung bases are clear. LIVER:Normal in size and contour. No focal lesion. Grossly unremarkable gallbladder. SPLEEN: Normal size. No focal lesion. PANCREAS: No mass, ductal dilation, or amy-pancreatic fluid. ADRENALS: Normal; no mass. KIDNEYS AND URETERS: There is a 5 mm calculus at the right UVJ with moderate right hydronephrosis. No left-sided stone or hydronephrosis seen. URINARY BLADDER: Normal contour. GASTROINTESTINAL TRACT: No evidence of bowel obstruction, significant free fluid, free air or abscess . APPENDIX: Normal appendix. LYMPH NODES: No lymphadenopathy. MUSCULOSKELETAL: No acute or suspicious osseous abnormality. IMPRESSION: 5 mm calculus is seen right UVJ resulting in mild/moderate right hydronephrosis.
--- NOTE | 2025-02-24 10:42 | ER ---
Nurse's Notes [facility] Name: Judith Arango Age: 49 yrs Sex: Female : 1975 Arrival Date: 02/24/2025 Time: 09:21 Bed 2 Private MD: Diagnosis: Kidney stone, ureterolithiasis, right flank pain Presentation: 02/24 09:39 Chief complaint: Patient states: R flank and LQ pain that started this morning, has had ph R sided back pain for a few days, also reports N/V. Coronavirus screen: Vaccine status: Patient reports being unvaccinated. Ebola Screen: No symptoms or risks identified at this time. Initial Sepsis Screen: Does the patient meet any 2 criteria? No. Patient's initial sepsis screen is negative. Does the patient have a suspected source of infection? No. Patient's initial sepsis screen is negative. Risk Assessment: Do you want to hurt yourself or someone else? Patient reports no desire to harm self or others. Onset of symptoms was February 24, 2025. 09:39 Method Of Arrival: Ambulatory 09:39 Acuity: DEE 3 ph Triage Assessment: 09:40 General: Appears in no apparent distress. uncomfortable, Behavior is calm, cooperative. ph Pain: Complains of pain in right mid back, right low back Pain radiates to posterior aspect of right lateral abdomen, anterior aspect of right lateral abdomen and right lower quadrant. Neuro: Level of Consciousness is awake, alert, obeys commands, Oriented to person, place, time, situation. Cardiovascular: Capillary refill < 3 seconds in bilateral fingers Patient's skin is warm and dry. Respiratory: Airway is patent Respiratory effort is even, unlabored, Respiratory pattern is regular, symmetrical. GI: Reports lower abdominal pain, nausea, vomiting. : Reports pain in right flank(s), lower quadrant(s). Derm: Skin is pink, warm \T\ dry. 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 - Infectious Disease History:: Denies. - Social history:: Smoking status: Patient denies any tobacco usage or history of. Screenin:17 [facility] ED Fall Risk Assessment (Adult) History of falling in the last 3 months, ph including since admission No falls in past 3 months (0 pts) Confusion or Disorientation No (0 pts) Intoxicated or Sedated No (0 pts) Impaired Gait No (0 pts) Mobility Assist Device Used No (0 pt) Altered Elimination No (0 pt) Score/Fall Risk Level 0 - 2 = Low Risk Oriented to surroundings, Maintained a safe environment, Hourly rounding (assess needs \T\ fall precautionary measures) done. Abuse screen: Denies threats or abuse. Denies injuries from another. Nutritional screening: No deficits noted. Tuberculosis screening: No symptoms or risk factors identified. Assessment: 10:19 Reassessment: reports that pain and nausea have improved after IV medications. General: ph SEE TRIAGE ASSESSMENT. Vital Signs: 09:39 BP 140 / 96; Pulse 81; Resp 18; Temp 97; Pulse Ox 100% on R/A; Weight 79.38 kg; Height ph 5 ft. 6 in. ; 10:18 BP 132 / 83; Pulse 76; Resp 18; Pulse Ox 92% on R/A; ph 09:39 Body Mass Index 28.25 (79.38 kg, 167.64 cm) ph ED Course: 09:25 Patient arrived in ED. al6 09:26 Hanh Zhou MD is Attending Physician. sp3 09:39 Mirlande Lopez, RN is Primary Nurse. ph 09:40 Triage completed. ph 09:42 Arm band placed on Patient placed in an exam room, on a stretcher. ph 09:55 Initial lab(s) drawn, by me, sent to lab. Inserted saline lock: 22 gauge in left ph antecubital area, using aseptic technique. Blood collected. Flushed with 10 mL NS. 10:03 CT Abd/Pelvis - Without Contrast In Process Unspecified. EDMS 10:10 Urine collected: clean catch specimen, moon colored. ph 10:15 CBC with Diff Sent. ph 10:15 CMP Sent. ph 10:15 Urinalysis w/ reflexes Sent. ph 10:18 Patient has correct armband on for positive identification. Bed in low position. Call ph light in reach. Side rails up X 1. Pulse ox on. NIBP on. Door closed. Noise minimized. Lights dimmed. Warm blanket given. Pillow given. 10:40 Ronak Bailey MD is Referral Physician. sp3 10:50 No provider procedures requiring assistance completed. IV discontinued, intact, ph bleeding controlled, No redness/swelling at site. Pressure dressing applied. Administered Medications: 10:14 Drug: HYDROmorphone IVP 1 mg IVP once Route: IVP; Site: left antecubital; ph 10:36 Follow up: Response: No adverse reaction; Pain is decreased ph 10:14 Drug: Ondansetron IVP 4 mg IVP once; over 2 minutes Route: IVP; Site: left antecubital; ph 10:36 Follow up: Response: No adverse reaction; Nausea is decreased ph Medication: 10:37 VIS not applicable for this client. ph Outcome: 10:41 Discharge ordered by MD. sp3 10:50 Discharged to home with significant other, ph 10:50 Condition: good 10:50 Discharge instructions given to patient, Instructed on discharge instructions, follow up and referral plans. medication usage, urine strainer, Demonstrated understanding of instructions, follow-up care, medications, Prescriptions given X 2, 10:50 Patient left the ED. ph Signatures: Dispatcher [employer] EDMS Mirlande Lopez RN RN ph Hanh Zhou MD MD sp3 Elisabeth [id number] Corrections: (The following items were deleted from the chart) 10:15 10:15 Test, Urine+UC.LAB.BRZ drawn and sent. ph EDMS 10:36 10:36 Response: No adverse reaction; Nausea is decreased ph ph
--- NOTE | 2025-02-24 10:42 | EDPHYS ---
Physician Documentation [facility] Name: Judith Arango Age: 49 yrs Sex: Female : 1975 Arrival Date: 02/24/2025 Time: 09:21 Bed 2 Private MD: ED Physician Hanh Zhou HPI: 02/24 09:58 This 49 yrs old Female presents to ER via Ambulatory with complaints of Possible Kidney sp3 Stone. 09:58 49-year-old female with history of diverticulitis status post sigmoidectomy, prior sp3 ovarian cyst, status post BTL, and history of prior kidney stone that presents with right flank pain radiating to the right lower quadrant coupled with vomiting for the last 24 hours. Patient feels like she has a kidney stone. She denies any fever, URI symptoms, chest pain, shortness of breath, FAMILY CASEWORKER symptoms or any other signs or symptoms on ROS at this time.. 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 - Infectious Disease History:: Denies. - Social history:: Smoking status: Patient denies any tobacco usage or history of. ROS: 09:59 Constitutional: Negative for fever, chills, and weight loss, Eyes: Negative for injury, sp3 pain, redness, and discharge, ENT: Negative for injury, pain, and discharge, Neck: Negative for injury, pain, and swelling, Cardiovascular: Negative for chest pain, palpitations, and edema, Respiratory: Negative for shortness of breath, cough, wheezing, and pleuritic chest pain, MS/Extremity: Negative for injury and deformity, Skin: Negative for injury, rash, and discoloration, Neuro: Negative for headache, weakness, numbness, tingling, and seizure, Psych: Negative for depression, anxiety, suicide ideation, homicidal ideation, and hallucinations, Allergy/Immunology: Negative for hives, rash, and allergies, Endocrine: Negative for neck swelling, polydipsia, polyuria, polyphagia, and marked weight changes, 09:59 All other systems are negative, Exam: 09:59 Constitutional: This is a well developed, well nourished patient who is awake, alert, sp3 and in no acute distress. Head/Face: Normocephalic, atraumatic. Eyes: Pupils equal round and reactive to light, extra-ocular motions intact. Lids and lashes normal. Conjunctiva and sclera are non-icteric and not injected. Cornea within normal limits. Periorbital areas with no swelling, redness, or edema. ENT: Nares patent. No nasal discharge, no septal abnormalities noted. External auditory canals are clear. Oropharynx with no redness, swelling, or masses, exudates, or evidence of obstruction, uvula midline. Mucous membranes moist. Neck: Trachea midline, no thyromegaly or masses palpated, and no cervical lymphadenopathy. Supple, full range of motion without nuchal rigidity, or vertebral point tenderness. No Meningismus. Chest/axilla: Normal chest wall appearance and motion. Nontender with no deformity. No lesions are appreciated. Cardiovascular: Regular rate and rhythm with a normal S1 and S2. No gallops, murmurs, or rubs. Normal PMI, no JVD. No pulse deficits. Respiratory: Lungs have equal breath sounds bilaterally, clear to auscultation and percussion. No rales, rhonchi or wheezes noted. No increased work of breathing, no retractions or nasal flaring. Skin: Warm, dry with normal turgor. Normal color with no rashes, no lesions, and no evidence of cellulitis. MS/ Extremity: Pulses equal, no cyanosis. Neurovascular intact. Full, normal range of motion. Neuro: Awake and alert, GCS 15, oriented to person, place, time, and situation. Cranial nerves II-XII grossly intact. Motor strength 5/5 in all extremities. Sensory grossly intact. Cerebellar exam normal. Normal gait. 09:59 Abdomen/GI: Patient tender right lower quadrant coupled with right CVA tenderness., Vital Signs: 09:39 BP 140 / 96; Pulse 81; Resp 18; Temp 97; Pulse Ox 100% on R/A; Weight 79.38 kg; Height ph 5 ft. 6 in. ; 10:18 BP 132 / 83; Pulse 76; Resp 18; Pulse Ox 92% on R/A; ph 09:39 Body Mass Index 28.25 (79.38 kg, 167.64 cm) ph MDM: 09:40 Medical Screening Exam initiated sp3 10:00 Data reviewed: vital signs, nurses notes, lab test result(s), radiologic studies. ED sp3 course: 49-year-old female with PMH above now with right flank and right abdominal pain. Differential diagnosis includes ureterolithiasis/kidney stone spectrum, UTI/pyelonephritis spectrum, other colitis, appendicitis, other intra-abdominal pathology, ovarian cyst, among others. Workup will include CT scan of the abdomen pelvis noncontrast kidney stone protocol, general labs, UA and general supportive care. Disposition pending workup and patient course.. 10:40 ED course: 5 mm kidney stone right UVJ with mild hydro-. Patient's symptoms much sp3 improved in terms of pain control. I discussed follow-up and probable course with her. Will discharge home with a urine strainer and prescriptions for tramadol and Flomax with urology follow-up.. 02/24 09:44 Order name: CBC with Diff; Complete Time: 10:29 sp3 02/24 09:44 Order name: CMP; Complete Time: 10:29 sp3 02/24 09:44 Order name: Lipase; Complete Time: 10:29 sp3 02/24 09:44 Order name: Test, Urine; Complete Time: 10:29 sp3 02/24 09:44 Order name: Urinalysis w/ reflexes; Complete Time: 10:29 sp3 02/24 09:44 Order name: CT Abd/Pelvis - Without Contrast; Complete Time: 10:36 sp3 02/24 09:44 Order name: IV Saline Lock; Complete Time: 10:15 sp3 02/24 09:44 Order name: Labs collected and sent; Complete Time: 10:15 sp3 Administered Medications: 10:14 Drug: HYDROmorphone IVP 1 mg IVP once Route: IVP; Site: left antecubital; ph 10:36 Follow up: Response: No adverse reaction; Pain is decreased ph 10:14 Drug: Ondansetron IVP 4 mg IVP once; over 2 minutes Route: IVP; Site: left antecubital; ph 10:36 Follow up: Response: No adverse reaction; Nausea is decreased ph Disposition Summary: 02/24/25 10:41 Discharge Ordered Notes: Location: Home sp3 Condition: Stable sp3 Diagnosis - Kidney stone, ureterolithiasis, right flank pain sp3 Followup: sp3 - With: Private Physician - When: Upon discharge from the Emergency Department - Reason: Continuance of care Followup: sp3 - With: Ronak Bailey MD - When: Upon discharge from the Emergency Department - Reason: Continuance of care Discharge Instructions: - Discharge Summary Sheet sp3 - Kidney Stones sp3 - Dietary Guidelines to Help Prevent Kidney Stones sp3 Forms: - Medication Reconciliation Form sp3 - Antibiotic Education sp3 - Prescription Opioid Use sp3 - Patient Portal Instructions sp3 - Leadership Thank You Letter sp3 Prescriptions: - Flomax 0.4 mg Oral capsule - take 1 capsule ORAL route daily; 5 capsule; Refills: 0, Product Selection sp3 Permitted - Tramadol 50 mg Oral Tablet - take 1 tablet ORAL route every 8 hours as needed; 12 tablet; Refills: 0, sp3 Product Selection Permitted Signatures: Dispatcher [employer] EDMirlande Barton RN RN Hanh Carvalho MD MD sp3 Corrections: (The following items were deleted from the chart) 09:44 09:44 CBC+H.LAB.BRZ ordered. EDMS EDMS 09:44 09:44 COMPREHENSIVE METABOLIC PANEL+C.LAB.BRZ ordered. EDMS EDMS 09:44 09:44 LIPASE+C.LAB.BRZ ordered. EDMS EDMS 09:44 09:44 Urinalysis+U.LAB.BRZ ordered. EDMS EDMS 09:44 09:44 Abdomen Pelvis Wo Con+CT.RAD.BRZ ordered. EDMS EDMS 10:15 09:44 Test, Urine+UC.LAB.BRZ ordered. EDMS EDMS
[2025-02-24 11:14] VITALS: BP 132/83; TEMP 97; O2SAT 92
== END 2025-02-24 10:50 | disposition home or self-care (01) ==
LOC: ER 09:21
DX: N20.2 Calculus of kidney with calculus of ureter (principal)
CPT/HCPCS: 85025; 81001; 36415; 81025; 83690; 80053; 74176; 96375; 96374; 99284; J1171; J2405